=== PATIENT | female | born 1960 | race Caucasian/White ===

== ENCOUNTER 2020-09-27 13:29 | Outpatient (CLI) | payer BC, SELFPAY ==
[2020-09-27] MEDS: iohexol 300 mg/mL 50 mL Btl PO (13:48)
--- NOTE | 2020-09-27 15:00 | CT_ITS ---
WS: [id number] CT ABDOMEN PELVIS TECHNIQUE: Contrast-enhanced CT of the abdomen and pelvis with coronal and sagittal reformatted image s. CLINICAL INFORMATION: R63.4 - Abnormal weight loss COMPARISON: None. DLP: 1075.[address] scans at [facility] use at least one of these dose optimization techniques: automat ed exposure control; mA and/or kV adjustment per patient size (includes targeted exams where dose is matched to clinical indication); or iterative reconstruction. FINDINGS: Mild diffuse infiltration of the liver. Cholecystectomy clips. Lung bases are well aerated. Normal GE junction. Adrenal glands are normal. Normal renal parenchymal enhancement. No hydronephrosis. Pancre as appears normal. Normal caliber abdominal aorta. Mild aortic calcification. Sigmoid diverticulosis. No evidence of acute diverticulitis. No evidence of small or large bowel obst ruction. No periaortic or retroperitoneal lymphadenopathy. No inguinal lymphadenopathy. Normal lumbar spine. No free fluid in the abdomen or pelvis. Tiny fat-containing umbilical hernia. CT/CT abdomen pelvis w con* [id number] IMPRESSION: 1. No acute findings in the abdomen or pelvis. 2. Mild diffuse fatty infiltration liver. 3. No adenopathy in the abdomen or pelvis. 4. No hydronephrosis in either kidney. Normal renal parenchymal enhancement. 5. Sigmoid diverticulosis. No evidence of acute diverticulitis. 6. Tiny fat-containing umbilical hernia.
[2020-09-27] MEDS: iohexol 300 mg/mL 100 mL Btl IV (15:29)
== END 2020-09-27 13:30 | disposition home or self-care (01) ==
LOC: RADWPI 13:34
PROVIDERS: PCP Nurse Practitioner Family; Visit Provider Internal Medicine
DX: R63.4 Abnormal weight loss (principal); K42.9 Umbilical hernia without obstruction or gangrene; K57.30 Diverticulosis of large intestine without perforation or abscess without bleeding; K76.0 Fatty (change of) liver, not elsewhere classified
CPT/HCPCS: 36415; 74177; 80053; 82105; 85025; 87522; Q9967

== ENCOUNTER → 2020-10-07 08:55 | Outpatient (BNVA) | payer BC, SELFPAY | PROVIDERS: PCP Nurse Practitioner Family; Visit Provider Nurse Practitioner Family | DX: B18.2 Chronic viral hepatitis C (principal) | CPT/HCPCS: 87902 ==

== ENCOUNTER → 2020-12-05 13:46 | Outpatient (BNVA) | payer BC, SELFPAY | PROVIDERS: PCP Nurse Practitioner Family; Visit Provider Internal Medicine | DX: H65.90 Unspecified nonsuppurative otitis media, unspecified ear (principal); B18.2 Chronic viral hepatitis C | CPT/HCPCS: 36415; 80053; 87522 ==

== ENCOUNTER → 2021-05-12 10:40 | Outpatient (BNVA) | payer BC, SELFPAY | PROVIDERS: PCP Nurse Practitioner Family; Visit Provider Nurse Practitioner Family | DX: Z20.822 Contact with and (suspected) exposure to COVID-19 (principal); J06.9 Acute upper respiratory infection, unspecified | CPT/HCPCS: 87426 ==

== ENCOUNTER → 2022-05-30 11:27 | Outpatient (BNVA) | payer OTHER, SELFPAY | PROVIDERS: PCP Nurse Practitioner Family; Visit Provider Internal Medicine | DX: R53.83 Other fatigue (principal); B19.20 Unspecified viral hepatitis C without hepatic coma; B18.2 Chronic viral hepatitis C; K22.70 Barrett's esophagus without dysplasia; R19.8 Other specified symptoms and signs involving the digestive system and abdomen | CPT/HCPCS: 80053; 83550; 84443; 85025; 87522 ==

== ENCOUNTER 2023-01-07 12:07 | Inpatient (IN) | payer BC, SELFPAY ==
[2023-01-07] VITALS (9 sets, daily range): BP systolic 85–133; BP diastolic 56–73; PULSE 80–112; RESP 15–17; TEMP 37.8–39.4; O2SAT 92–98; BMI 30.7
--- NOTE | 2023-01-07 12:09 | ED_ITS ---
HPI - General Adult General: Chief complaint: Nausea/Vomiting/Diarrhea Stated complaint: FLU LIKE SYMP Time Seen by Provider: 01/07/23 12:09 History of Present Illness: Ms. Segura is a 62-year-old lady with history of hepatitis C presenting to the emergency department for generalized illness. She reports feeling at his baseline health yesterday and this morning at around 5 AM developed symptoms. She has had nonbilious and nonbloody emesis associated with nausea. She endorses neck pain, back pain, achiness, shortness of breath, generalized malaise. Intensity symptoms is moderate to severe. Course has persisted. She has tried home acetaminophen and analgesic without significant improvement. No other specific changes in health, exacerbating, or alleviating factors identified. Onset (ago): hour(s) Location: neck, chest, back, abdomen, upper extremity and lower extremity Severity: moderate Quality: other Pain Consistency: constant Relieving factors: none Exacerbating factors: none Associated symptoms: Reports dyspnea, fevers/chills, malaise, nausea, vomiting and weakness Review of Systems General: Reports: 10 or more systems reviewed and unremarkable except in HPI a nd below Const: Reports: malaise Resp: Reports: dyspnea GI: Reports: nausea and vomiting PFSH ED PFSH: Medical History (Updated 01/12/23 @ 00:01 by NILESH Daley) Hepatitis C Treated with Peg/riba in 1999. Failed. Major depression Surgical History (Updated 01/07/23 @ 17:03 by Itz Waite MD) H/O left knee surgery H/O tubal ligation History of cholecystectomy S/P adenoidectomy Family History Father Stroke Father CAD (coronary artery disease) Mother AD (Alzheimer's disease) Social History (Updated 01/07/23 @ 17:04 by Itz Waite MD) Smoking and tobacco status: never smoked Alcohol intake: former Physical Exam Const: COMMON NORMALS: alert GENERAL APPEARANCE: cooperative, well developed and ill appearing HENMT: COMMON NORMALS: normocephalic and atraumatic HEAD & SCALP: normocephalic and atraumatic THROAT: posterior oropharynx normal Eye: COMMON NORMALS: conjunctivae normal CONJUNCTIVA: Yes conjunctivae normal SCLERA: sclerae normal Neck/C-Spine: COMMON NORMALS: supple GENERAL: Yes trachea midline Resp: COMMON NORMALS: clear to auscultation bilaterally EFFORT & INSPECTION: Yes able to speak in complete sentences and Yes tachypneic AUSCULTATION: clear to auscultation bilaterally Cardio: COMMON NORMALS: regular rhythm RATE: tachycardic RHYTHM: regular rhythm GI: COMMON NORMALS: Soft to palpation PALPATION: Yes Soft to palpation and No Tenderness to palpation present (GI) Extremity: GENERAL: Yes normal exam except as noted and No edema Neuro: COMMON NORMALS: moves all extremities SENSORIUM/ORIENTATION: Yes a lert and No Orientation impaired Psych: COMMON NORMALS: mental status grossly normal and Normal thought process present THOUGHT PROCESS: Normal thought process present Course 2 Vital Signs: Vital signs: Vital Signs Temperature 98.6 F 01/11/23 11:33 Pulse Rate 77 01/11/23 11:33 Respiratory Rate 16 01/11/23 11:33 Blood Pressure 128/89 01/11/23 11:33 Pulse Oximetry 94 01/11/23 11:33 Oxygen Delivery Me thod 01/11/23 07:35 Oxygen Flow Rate 2 01/11/23 07:35 [facility] - General Adult Medical Decision Making 62-year-old lady presenting with abdominal symptoms. Patient is febrile and mildly tachycardic upon arrival. Somewhat ill-appearing though nontoxic. Labs are notable for leukocytosis, there is normal hemoglobin and platelet count. Metabolic panel with evidence of dehydration and hypokalemia. Initial lactic acid is elevated as well as procalcitonin. Hematuria present without evidence of urinary tract infection. Viral panel is pending. CT abdomen and pelvis demonstrates likely diverticulitis. Incidental findings noted. Chest x-ray with no lobar consolidation or pneumothorax. During the ED course patient treated with analgesia, antiemetic, IV fluids, potassium replenishment, antibiotics. Most likely etiology of patient's symptoms is diverticulitis with associated sepsis. The results of ED evaluation were discussed with the patient including plan for admission due to requirement for level of care not available if discharged to prevent significant worsening/deterioration. Patient agreeable with plan. Discussed with hospitalist service who was agreeable to admit patient. Medical Records I reviewed the patient's medical records. Lab Data I reviewed the patient's lab results. 01/11/23 05:22 01/11/23 05:22 Radiology Impressions Chest X-Ray 01/07/23 12:17 IMPRESSION: Negative portable chest. Abdomen/Pelvis CT 01/07/23 14:54 IMPRESSION: 1. Mild thickening of the sigmoid colon with slight surrounding induration suspicious for mild or early acute diverticulitis. 2. Diffuse fatty infiltration liver. Mild hepatomegaly. 3. Prior cholecystectomy. 4. Small esophageal hiatal hernia. 5. No other significant interval changes compared to previous. Chest CT 01/07/23 16:47 IMPRESSION: 1. Left upper lobe pneumonia, follow-up exam in 1 month advised to assess for resolution. 2. Small hiatal hernia. Head CT 01/07/23 16:47 IMPRESSION: No acute intracranial abnormality. Laboratory Results WBC 12.7 10^3/uL (4.0-10.0) H 01/07/23 13:05 RBC 4.72 10^6/uL (4.1-5.3) 01/07/23 13:05 Hgb 14.5 g/dL (11.5-15.3) 01/07/23 13:05 Hct 43.1 % (37.0-47.0) 01/07/23 13:05 MCV 91.3 fl (81-99) 01/07/23 13:05 MCH 30.7 pg (28.0-34.0) 01/07/23 13:05 MCHC 33.6 g/dL (30.0-36.0) 01/07/23 13:05 RDW 13.4 % (12.1-15.1) 01/07/23 13:05 Plt Count 191 10^3/cmm (130-400) 01/07/23 13:05 MPV 9.8 fL (7.4-10.4) 01/07/23 13:05 Neut % (Auto) 91.2 % 01/07/23 13:05 Lymph % (Auto) 3.5 % 01/07/23 13:05 [place] % (Auto) 4.5 % 01/07/23 13:05 Eos % (Auto) 0.0 % 01/07/23 13:05 Baso % (Auto) 0.2 % 01/07/23 13:05 Neut # (Auto) 11.61 10^3/uL (1.8-7.7) H 01/07/23 13:05 Lymph # (Auto) 0.5 10^3/uL (0.8-4.8) L 01/07/23 13:05 [place] # (Auto) 0.6 10^3/uL (0.2-0.9) 01/07/23 13:05 Eos # (Auto) 0.0 10^3/uL (0.0-0.8) 01/07/23 13:05 Baso # (Auto) 0.0 10^3/uL (0.0-0.1) 01/07/23 13:05 Nucleated RBC % (auto) 0 % 01/07/23 13:05 Nucleated RBCs # 0.0 /100WBC 01/07/23 13:05 ESR 10 mm/hr (0-15) 01/07/23 13:05 Sodium 136 mmol/L (136-145) 01/07/23 13:05 Potassium 3.1 mmol/L (3.5-5.1) L 01/07/23 13:05 Chloride 98 mmol/L (98-107) 01/07/23 13:05 Carbon Dioxide 24 mmol/L (22-29) 01/07/23 13:05 Anion Gap 17.1 (5-19) 01/07/23 13:05 BUN 13 mg/dL (8-23) 01/07/23 13:05 Creatinine 0.8 mg/dL (0.5-0.9) 01/07/23 13:05 GFR Calculation 72.7 mL/min (90-130) L 01/07/23 13:05 Glucose 128 mg/dL (65-115) H 01/07/23 13:05 Calculated Osmolality 284 mOsm/kg (285-295) L 01/07/23 13:05 Lactic Acid 2.6 mmol/L (0.5-2.2) H 01/07/23 14:45 Calcium 9.4 mg/dL (8.5-10.5) 01/07/23 13:05 Total Bilirubin 0.8 mg/dL (0.15-1.2) 01/07/23 13:05 AST 25 U/L (0-32) 01/07/23 13:05 ALT 17 U/L (0-33) 01/07/23 13:05 Alkaline Phosphatase 97 U/L (35-105) 01/07/23 13:05 C-Reactive Protein 25.8 mg/L (0.0-4.9) H 01/07/23 13:05 Total Protein 7.4 g/dL (6.6-8.7) 01/07/23 13:05 Albumin 4.6 g/dL (3.5-5.2) 01/07/23 13:05 Globulin 2.8 g/dL (1.3-4.6) 01/07/23 13:05 Procalcitonin 20.21 ng/mL (0-0.5) H 01/07/23 14:45 TSH 0.76 uIU/mL (0.27-4.20) 01/07/23 14:42 Urine Color Yellow (Yellow) 01/07/23 14:19 Urine Appearance Clear (CLEAR) 01/07/23 14:19 Urine pH 5 (5-7) 01/07/23 14:19 Ur Specific [place] 1.015 (1.005-1.030) 01/07/23 14:19 Urine Protein Neg (Negative) 01/07/23 14:19 Urine Glucose (UA) Norm (Normal) 01/07/23 14:19 Urine Ketones Negative (Negative) 01/07/23 14:19 Urine Blood 2+ (Negative) H 01/07/23 14:19 Urine Nitrate Negative (Negative) 01/07/23 14:19 Urine Bilirubin Neg (Negative) 01/07/23 14:19 Urine Urobilinogen Norm mg/dL (Negative) 01/07/23 14:19 Ur Leukocyte Esterase Negative (Negative) 01/07/23 14:19 Urine RBC 5-10 /hpf (0-2) H 01/07/23 14:19 Urine WBC None /hpf (0-5) 01/07/23 14:19 Ur Squamous Epith Cells 0-4 /hpf (0-5) H 01/07/23 14:19 Amorphous Sediment Not Reportable 01/07/23 14:19 Urine Bacteria None /hpf (NONE) 01/07/23 14:19 Urine Mucus 1+ /hpf 01/07/23 14:19 Urine Opiates Screen Positive ng/mL (Negative) H 01/07/23 14:19 Ur Barbiturates Screen Negative ng/mL (Negative) 01/07/23 14:19 Ur Phencyclidine Scrn Negative ng/mL (Negative) 01/07/23 14:19 Ur Amphetamines Screen Negative ng/mL (Negative) 01/07/23 14:19 U Benzodiazepines Scrn Negative ng/mL (Negative) 01/07/23 14:19 Urine Cocaine Screen Negative ng/mL (Negative) 01/07/23 14:19 U Marijuana (THC) Screen Positive ng/mL (Negative) H 01/07/23 14:19 EBV IgG Ab 646.00 U/mL H 01/07/23 13:05 EBV IgM Ab <36.00 U/mL 01/07/23 13:05 EBV Nuclear Antigen 63.50 U/mL H 01/07/23 13:05 EBV Interpretation See note 01/07/23 13:05 Hepatitis A IgM Ab Non-reactive (Nonreactive) 01/07/23 13:05 Hep Bs Antigen Non-reactive (Nonreactive) 01/07/23 13:05 Hep B Core IgM Ab Non-reactive (Nonreactive) 01/07/23 13:05 Hepatitis C Antibody Reactive (Nonreactive) H 01/07/23 13:05 HIV 1&2 Ab & HIV 1 Ag Non-reactive (Non-Reactiv) 01/07/23 13:05 HIV 1&2 Antibody Non-reactive (Non-Reactiv) 01/07/23 13:05 Influenza Type A Ag negative (Negative) 01/07/23 13:07 Influenza Type B Ag negative (Negative) 01/07/23 13:07 SARS-CoV-2 Ag (Rapid) negative (Negative) 01/07/23 13:07 Discharge Plan Discharge Patient Disposition: Admitted As Inpatient Admit Provider: Itz Waite Clinical Impression: Diverticulitis, Sepsis Condition: Stable Discharge Diet: Cardiac Discharge Activity: Resume usual activity Coding Level of Care Code ED [employer] for Isai Causey
--- NOTE | 2023-01-07 12:17 | XRR_ITS ---
PROCEDURE INFORMATION: Exam: XR Chest Exam date and time: 01/07/2023 12:21 PM Age: 62 years old Clinical indication: Shortness of breath; Additional info: SOB TECHNIQUE: Imaging protocol: Radiologic exam of the chest. Views: 1 view. COMPARISON: CT abdomen pelvis w con* [id number] 09/27/2020 3:26 PM FINDINGS: Lungs: Unremarkable for portable technique. No consolidation. Pleural spaces: Unremarkable. No pleural effusion. No pneumothorax. Heart/Mediastinum: Unremarkable. No cardiomegaly. Bones/joints: Unremarkable for age. XR/XR chest 1V portable [id number] IMPRESSION: Negative portable chest.
[2023-01-07] MEDS: metoclopramide 5 mg/mL SDV 2 mL 10 MG IVP (13:02)
[2023-01-07] MEDS: ketorolac 30 mg/mL INJ 15 MG IVP (13:02)
[2023-01-07] MEDS: sodium chloride 0.9% 1,000 ML 999 ML IV ×2 (13:02→14:24)
[2023-01-07 13:27] LABS: Basophils % 0.2 %; Hematocrit 43.1 % (37.0-47.0); Hemoglobin 14.5 g/dL (11.5-15.3); Lymphocytes # 0.5 10^3/uL (0.8-4.8); Lymphocytes % 3.5 %; Mean Corpuscular HGB Conc 33.6 g/dL (30.0-36.0); Mean Corpuscular Hemoglobin 30.7 pg (28.0-34.0); Mean Corpuscular Volume 91.3 fl (81-99); Mean Platelet Volume 9.8 fL (7.4-10.4); Monocytes # 0.6 10^3/uL (0.2-0.9); Monocytes % 4.5 %; Neutrophils # 11.61 10^3/uL (1.8-7.7); Neutrophils % 91.2 %; Nucleated Red Blood Cells % 0 %; Platelet Count 191 10^3/cmm (130-400); Red Blood Count 4.72 10^6/uL (4.1-5.3); Red Cell Distribution Width 13.4 % (12.1-15.1); White Blood Count 12.7 10^3/uL (4.0-10.0)
[2023-01-07 13:42] LABS: Influenza A by IFA negative (Negative); Influenza B by IFA negative (Negative)
[2023-01-07 13:43] LABS: SARS Covid-2 Antigen negative (Negative)
[2023-01-07 13:48] LABS: Alanine Aminotransferase 17 U/L (0-33); Albumin Level 4.6 g/dL (3.5-5.2); Alkaline Phosphatase 97 U/L (35-105); Anion Gap 17.1 (5-19); Aspartate Amino Transferase 25 U/L (0-32); Blood Urea Nitrogen 13 mg/dL (8-23); Calcium 9.4 mg/dL (8.5-10.5); Carbon Dioxide 24 mmol/L (22-29); Chloride 98 mmol/L (98-107); Globulin 2.8 g/dL (1.3-4.6); Glomerular Filtration Rate 72.7 mL/min (90-130); Glucose 128 mg/dL (65-115); Osmolality Calculated 284 mOsm/kg (285-295); Potassium 3.1 mmol/L (3.5-5.1); Sodium 136 mmol/L (136-145); Total Bilirubin 0.8 mg/dL (0.15-1.2); Total Protein 7.4 g/dL (6.6-8.7)
[2023-01-07] MEDS: potassium chloride ER 20 mEq Tablet 40 MEQ PO (14:34)
[2023-01-07 14:49] LABS: Add Urine Microscopic? YES; Bilirubin Urine Neg (Negative); Blood Urine 2+ (Negative); Glucose Urine UA Norm (Normal); Ketones Urine Negative (Negative); Leukocyte Esterase Urine Negative (Negative); Nitrate Urine Negative (Negative); Protein Urine Neg (Negative); Specific Gravity, Urine 1.015 (1.005-1.030); Urine Appearance Clear (CLEAR); Urine Color Yellow (Yellow); Urobilinogen Urine Norm (Negative); pH Urine 5 (5-7)
[2023-01-07 14:50] LABS: Add Urine Culture? No; Mucus Urine 1+ /hpf; Squamous Epithelial Cell Urine 0-4 /hpf (0-5)
--- NOTE | 2023-01-07 14:54 | CT_ITS ---
WS: [id number] CT ABDOMEN PELVIS TECHNIQUE: Contrast-enhanced CT of the abdomen and pelvis with coronal and sagittal reformatted image s. CLINICAL INFORMATION: n/v/d, SIRS COMPARISON: CT September 27, 2020 DLP: 832.[address] scans at [facility] use at least one of these dose optimization techniques: automated e xposure control; mA and/or kV adjustment per patient size (includes targeted exams where dose is matc hed to clinical indication); or iterative reconstruction. FINDINGS: Diffuse fatty infiltration liver. Hepatomegaly. Prior cholecystectomy. Normal portal vein and splenic vein. Normal spleen. Tiny esophageal hiatal hernia. Lung bases are well aerated. Prior cholecystecto my. Adrenal glands are normal. Normal renal parenchymal enhancement. No hydronephrosis. Normal calibe r abdominal aorta. Sigmoid diverticulosis. Mild wall thickening with slight induration in the sigmoid colon LEFT lower q uadrant suspicious for mild or early diverticulitis. No fluid collections. Colon is otherwise normal in appearance. Normal appendix RIGHT lower quadrant. No free fluid in the a bdomen or pelvis. Normal lumbar spine. CT/CT abdomen pelvis w con* [id number] IMPRESSION: 1. Mild thickening of the sigmoid colon with slight surrounding induration fadi picious for mild or early acute diverticulitis. 2. Diffuse fatty infiltration liver. Mild hepatomegaly. 3. Prior cholecystectomy. 4. Small esophageal hiatal hernia. 5. No other significant interval changes compared to previous.
[2023-01-07] MEDS: iohexol 350 mg/mL 500 mL Btl (per mL) IV (15:07)
[2023-01-07 15:43] LABS: Lactic Sepsis W/Reflex 2.6 mmol/L (0.5-2.2)
[2023-01-07 15:50] LABS: Procalcitonin 20.21 ng/mL (0-0.5)
[2023-01-07] MEDS: metroNIDAZOLE IV 500 MG/100 ML PREMIX 100 MG IV (16:16)
[2023-01-07] MEDS: ciprofloxacin 400 MG/200 ML PREMIX 200 MG IV (16:16)
--- NOTE | 2023-01-07 16:47 | CTR_ITS ---
PROCEDURE INFORMATION: Exam: CT Head Without Contrast Exam date and time: 01/07/2023 4:56 PM Age: 62 years old Clinical indication: Pain; Headache TECHNIQUE: Imaging protocol: Computed tomography of the head without contrast. Radiation optimization: All CT scans at this facility use at least one of these dose optimization techniques: automated exposure control; mA and/or kV adjustment per patient size (includes targeted exams where dose is matched to clinical indication); or iterative reconstruction. REPORTING DATA: Count of CT and Cardiac NM exams in prior 12 months: This patient has received [address] and 0 known cardiac nuclear medicine studies in the 12 months prior to the current study. COMPARISON: No relevant prior studies available. RADIATION DOSE METRICS: Total DLP (mGy-cm): 1054.84 FINDINGS: Brain: Normal. No hemorrhage. No mass effect or midline shift. Cortical sulci and white matter are unremarkable for age. Cerebral ventricles: Unremarkable for age. Paranasal sinuses: Visualized sinuses are unremarkable. No fluid levels. Mastoid air cells: Visualized mastoid air cells are well aerated. Bones/joints: Unremarkable. No acute fracture. Soft tissues: Unremarkable. Other findings: There is increased attenuation within the cerebral vasculature that is believed incidental related to recent contrast enhanced study of the abdomen and pelvis performed earlier the same day. There is also increased attenuation noted within the dural sinuses and tentorium that is believe similar in nature. CT/CT head wo con* [id number] IMPRESSION: No acute intracranial abnormality.
--- NOTE | 2023-01-07 16:47 | CTR_ITS ---
PROCEDURE INFORMATION: Exam: CT Chest Without Contrast; Diagnostic Exam date and time: 01/07/2023 4:59 PM Age: 62 years old Clinical indication: Shortness of breath; Additional info: SOB TECHNIQUE: Imaging protocol: Diagnostic computed tomography of the chest without contrast. Radiation optimization: All CT scans at this facility use at least one of these dose optimization techniques: automated exposure control; mA and/or kV adjustment per patient size (includes targeted exams where dose is matched to clinical indication); or iterative reconstruction. REPORTING DATA: Count of CT and Cardiac NM exams in prior 12 months: This patient has received 2 known CTs and 0 known cardiac nuclear medicine studies in the 12 months prior to the current study. COMPARISON: CR XR chest 1V portable [id number] 01/07/2023 12:21 PM RADIATION DOSE METRICS: Total DLP (mGy-cm): 401.65 FINDINGS: Lungs: Left upper lobe pneumonia, follow-up exam in 1 month advised to assess for resolution. Pleural spaces: Unremarkable. No pneumothorax. No pleural effusion. Heart: Unremarkable. No cardiomegaly. No pericardial effusion. Coronary arteries: Negative for coronary artery atherosclerotic calcifications. Lymph nodes: Unremarkable. No enlarged lymph nodes. Vasculature: Unremarkable. No aortic aneurysm. Bones/joints: Unremarkable. No acute fracture. Soft tissues: Small hiatal hernia. CT/CT chest [facility] [id number] IMPRESSION: 1. Left upper lobe pneumonia, follow-up exam in 1 month advised to assess for resolution. 2. Small hiatal hernia.
--- NOTE | 2023-01-07 16:55 | PM.HP ---
Providers/Chief Complaint Primary Care Provider: THI Chavez Chief Complaint: FLU LIKE SYMP History of Present Illness Mary Grace Segura is a 62 year old female with a past medical history of hepatitis C status posttreatment, who presents to [facility] due to fatigue, malaise, shortness of breath, cough, lung pain, fevers for the last 24 hours. Patient tells me that this morning she woke up and she was not feeling well, felt fatigue, malaise she tells me almost felt like she had the flu, she felt short of breath, she had a nonproductive cough she was having pain in she tells me her lungs are hurting her when she is taking a deep breath, denies any chest pain, no chest wall pain it just hurts when I breathe she tells me, and also hurts when it radiates to my back. She tells me that her was sick about a week ago, he also had like flulike symptoms. She was also saw sick a few weeks ago had flulike symptoms but her symptoms resolved. Her son has also been sick he thought he was exposed to COVID at work, but he tested himself and this was about a week ago he tested negative. She was doing well yesterday she tells me she actually went on a road trip yesterday, no tick bites, no dog or cat bites, no known exposures. She does tell me that roughly a few weeks ago she fell she hit her head, and she went to the ER at [facility] and they told her that she was okay she tells me that periodically she does get headaches, currently she is not particularly having a headache, no neck pain, no neck stiffness, no range of motion, no blurry vision. She denies any abdominal pain, no diarrhea she had a bowel movement this morning. No bloody or black stools. No dysuria, no CVA tenderness. She does tell me that she has outbreaks of herpes, she what she calls herpes, that occur along her buttocks, currently she does not have a outbreak of herpes denies being sexually active, denies history of HIV or STDs. Does report a history of hepatitis C for which she was treated Review of Systems Const: Reports: fever(s), chills, body aches, fatigue and malaise Eyes: Denies: change in vision or blurry vision ENMT: Denies: throat pain or hoarseness Card: Reports: dyspnea on exertion; Denies: chest pain or pre-syncope Resp: Reports: dyspnea and non-productive cough GI: Denies: abdominal pain, nausea, vomiting or diarrhea : Denies: flank pain, difficulty voiding or dysuria Musc: Denies: neck pain or back pain Skin/Breast: Denies: rash Neuro: Reports: headache(s) and numbness in extremities; Denies: weakness in extremities, sensory changes, difficulty walking, frequent falls, dizziness or Slurred speech present Psych: Denies: anxiety Endo: Denies: polyuria Kevin/Lymph: Reports: enlarged lymph nodes All/Imm: Denies: urticaria Medications/Allergies Home Medications Medication Instructions Recorded Confirmed Last Taken Type linaclotide 72 mcg capsule 72 mcg PO DAILY #90 caps 06/25/22 07/05/22 Unknown Rx (Linzess) nirmatrelvir 300 mg (150 mg See Rx Instructions PO .COMPLEX 07/25/22 Unknown Rx x2)-ritonavir 100 mg tablet,dose #30 tabs pack(EUA) (Paxlovid) Allergies Allergy/AdvReac Type Severity Reaction Status Date / Time cefaclor Allergy Intermediate hives Verified 07/05/22 14:15 Sulfa (Sulfonamide Allergy Intermediate hives Verified 07/05/22 14:15 Antibiotics) PFSH Acute PFSH: Medical History (Updated 01/07/23 @ 17:09 by Itz Waite MD) Hepatitis C Treated with Peg/riba in 1999. Failed. Major depression Surgical History (Updated 01/07/23 @ 17:03 by Itz Waite MD) H/O left knee surgery H/O tubal ligation History of cholecystectomy S/P adenoidectomy Family History Father Stroke Father CAD (coronary artery disease) Mother AD (Alzheimer's disease) Social History (Updated 01/07/23 @ 17:04 by Itz Waite MD) Smoking and tobacco status: never smoked Alcohol intake: former Substance/Drug Use: current Substance/Drug use type: Marijuana Vitals/I&O/Wt Last Vital Signs Temp 100.1 F H 01/07/23 14:11 Pulse 99 03/06/23 16:28 Resp 16 01/07/23 16:28 BP 98/63 01/07/23 16:28 Pulse Ox 95 01/07/23 16:28 O2 Del Method 01/07/23 16:28 Weight last 48 hrs Weight 86.183 kg Physical Exam Const: COMMON NORMALS: no acute distress and patient oriented x3 HENMT: COMMON NORMALS: normocephalic HEAD & SCALP: normocephalic Eye: COMMON NORMALS: Equal, round and reactive pupils present and EOMs intact bilaterally Neck/C-Spine: COMMON NORMALS: no JVD GENERAL: Yes lymphadenopathy and No Meningeal signs present OTHER: Kernig sign negative, Brudzinski sign negative Lymph: LYMPHATIC: lymphadenopathy OTHER: cervical Resp: COMMON NORMALS: normal respiratory effort, No retractions, No use of accessory muscles and clear to auscultation bilaterally AUSCULTATION: wheezes scattered wheezes Cardio: COMMON NORMALS: no JVD, regular rate, regular rhythm, S1 normal heart sound present and S2 normal heart sound present RATE: regular rate RHYTHM: regular rhythm HEART SOUNDS: S1 normal heart sound present and S2 normal heart sound present GI: COMMON NORMALS: Normal to inspection, nondistended, normoactive bowel sounds present, Soft to palpation, non-tender, No hepatosplenomegaly present, no masses and no bruits PALPATION: Yes Soft to palpation and Yes No hepatosplenomegaly present : COMMON NORMALS: Yes no CVA tenderness Extremity: COMMON NORMALS: capillary refill normal, no clubbing, cyanosis or edema, no calf tenderness and no pedal edema Neuro: COMMON NORMALS: patient oriented x3, CN's II-XII intact bilaterally, moves all extremities and no focal motor deficits Psych: COMMON NORMALS: mental status grossly normal Skin: COMMON NORMALS: no rashes or lesions noted Data 01/07/23 13:05 01/07/23 13:05 Micro: Microbiology 01/07/23 13:12 Blood Culture - Preliminary Blood SPECIMEN COLLECTED 01/07/23 13:05 Blood Culture - Preliminary Blood SPECIMEN COLLECTED A&P Assessment and plan (1) Sepsis: (2) Fever: (3) Diverticulitis: Plan Fever -Etiology unclear at this time -She denies any abdominal pain complaints, no diarrhea, no constipation, no bloody or black stools, on examination is really not tender in the abdomen, she does not report chronic abdominal discomfort, but really its not bothering her now -CT abdomen pelvis shows ? Mild thickening of the sigmoid colon with slight surrounding induration suspicious for mild or early acute diverticulitis. -I am not exactly convinced that diverticulitis is a reason she is having fevers, not feeling well, nonetheless she received Cipro and Flagyl in the ER -Urinalysis was unremarkable, no CVA tenderness -She does have symptomatology consistent with pneumonia although her chest x-ray was unremarkable -We will Pro-Jose is over 20 -White blood cell count 12.7 -Febrile emergency room -Her flu and COVID were negative but this was a rapid COVID -Given her cervical lymphadenopathy she does have features of a viral illness, -She has had complaints of headache since her fall about a week ago, but in is not particularly bad in her words today, no blurry vision, Kernig sign negative Brudzinski sign negative but she has been complaining of paresthesias this morning in her fingers, no focal weakness -She has sepsis markers in the ER including elevated lactic acid 2.6, blood pressures are soft 98/63, -She is alert oriented x3, following all commands -Plan -Admit to general medical floors -Neurochecks, monitor respiratory status -CT of chest ordered -CT of the head -Viral respiratory panel, COVID PCR -Follow blood cultures -Urine drug screen -Tick panel -Broad-spectrum antibiotic therapy vancomycin, Zosyn and doxycycline for possible tickborne illness -Full code -Lovenox for DVT prophylaxis Attestations Medical Necessity Statement*: Patient requires hospitalization, inpatient, greater than 2 minutes, for fever, cough, shortness of breath Diagnoses Sepsis A41.9 Fever R50.9 Diverticulitis K57.92
[2023-01-07 17:06] LABS: Reflex Lactate Order REFLEX LACTIC ORDERD
[2023-01-07 17:15] LABS: C Reactive Protein 25.8 mg/L (0.0-4.9)
[2023-01-07 17:45] LABS: Erythrocyte Sedimentation Rate 10 mm/hr (0-15)
[2023-01-07] MEDS: enoxaparin 40 mg/0.4 mL Syringe SUBCUT (19:30)
[2023-01-07] MEDS: pantoprazole 40 mg SDV IVP (19:30)
[2023-01-07] MEDS: sodium chloride 0.9% 1,000 ML 125 ML IV (19:31)
[2023-01-07] MEDS: doxycycline 100 MG in sodium chloride 0.9% (plus) 100 ML IV (19:31)
--- NOTE | 2023-01-07 19:35 | PC.NURSE ---
Patient states it is okay to talk with sisters Melinda Garcia, Joanne Ana. Also states it is okay to talk with son Jag Pelayo.
[2023-01-07 19:40] LABS: Thyroid Stimulating Hormone 0.76 uIU/mL (0.27-4.20)
[2023-01-07 19:45] LABS: Hepatitis A Antibody IgM Non-Reactive (Nonreactive); Hepatitis B Core IgM Non-Reactive (Nonreactive); Hepatitis B Surface Antigen Non-Reactive (Nonreactive); Hepatitis C Virus Antibody Reactive (Nonreactive)
[2023-01-07 19:51] LABS: HIV 1 & 2 Antibody Non-Reactive (Non-Reactiv); HIV 1 & 2 Antigen Non-Reactive (Non-Reactiv)
[2023-01-07 20:09] LABS: Lactic Acid level (Lactate) 4.2 mmol/L (0.5-2.2)
[2023-01-07] MEDS: acetaminophen 325 mg Tablet 650 MG PO (20:26)
[2023-01-07] MEDS: ondansetron 2 mg/ML SDV 2 mL 4 MG IVP (20:26)
[2023-01-07 20:55] LABS: Amphetamines Screen Urine Negative (Negative); Barbiturates Screen Urine Negative (Negative); Benzodiazepines Screen Urine Negative (Negative); Cocaine Screen Urine Negative (Negative); Opiate Screen Urine Positive (Negative); PCP Screen Urine Negative (Negative); THC Screen Urine Positive (Negative)
[2023-01-07] MEDS: vancomycin 1,500 MG/300 ML PIGGYBACK 200 MG IV (20:57)
[2023-01-07] MEDS: piperacillin-tazobactam 3.375 GM in sodium chloride 0.9% (plus) 50 ML IV (22:53)
[2023-01-08] VITALS (10 sets, daily range): BP systolic 85–98; BP diastolic 58–65; PULSE 80–87; RESP 15–18; TEMP 36.6–37.3; O2SAT 95–98
[2023-01-08 00:08] LABS: Adenovirus Not Detected (NOT DETECT); Chlamydia Pneumoniae Not Detected (NOT DETECT); Coronavirus 229E,HKU1,NL63,OC4 Not Detected (NOT DETECT); Human Metapneumovirus Not Detected (NOT DETECT); Human Rhinovirus/Enterovirus Not Detected (NOT DETECT); Influenza A Not Detected (NOT DETECT); Influenza A H1 Not Detected (NOT DETECT); Influenza A H1-2009 Not Detected (NOT DETECT); Influenza A H3 Not Detected (NOT DETECT); Influenza B Not Detected (NOT DETECT); Mycoplasma Pneumoniae Not Detected (NOT DETECT); Parainfluenza Virus Type 1 Not Detected (NOT DETECT); Parainfluenza Virus Type 2 Not Detected (NOT DETECT); Parainfluenza Virus Type 3 Not Detected (NOT DETECT); Parainfluenza Virus Type 4 Not Detected (NOT DETECT); Respiratory Syncytial Virus A Not Detected (NOT DETECT); Respiratory Syncytial Virus B Not Detected (NOT DETECT); SARS-COV-2 Not Detected (NOT DETECT)
[2023-01-08] MEDS: acetaminophen 325 mg Tablet 650 MG PO ×4 (02:46→21:43)
[2023-01-08] MEDS: sodium chloride 0.9% 1,000 ML 125 ML IV (02:48)
[2023-01-08 06:17] LABS: Hematocrit 35.1 % (37.0-47.0); Hemoglobin 11.3 g/dL (11.5-15.3); Mean Corpuscular HGB Conc 32.2 g/dL (30.0-36.0); Mean Corpuscular Hemoglobin 30.3 pg (28.0-34.0); Mean Corpuscular Volume 94.1 fl (81-99); Mean Platelet Volume 9.9 fL (7.4-10.4); Platelet Count 154 10^3/cmm (130-400); Red Blood Count 3.73 10^6/uL (4.1-5.3); Red Cell Distribution Width 14.1 % (12.1-15.1); White Blood Count 20.9 10^3/uL (4.0-10.0)
[2023-01-08 06:46] LABS: Blood Urea Nitrogen 16 mg/dL (8-23); C Reactive Protein 225.3 mg/L (0.0-4.9); Calcium 7.8 mg/dL (8.5-10.5); Carbon Dioxide 19 mmol/L (22-29); Chloride 104 mmol/L (98-107); Glomerular Filtration Rate 63.4 mL/min (90-130); Glucose 129 mg/dL (65-115); Osmolality Calculated 287 mOsm/kg (285-295); Sodium 137 mmol/L (136-145)
[2023-01-08 06:47] LABS: Anion Gap 18.1 (5-19); Potassium 4.1 mmol/L (3.5-5.1)
[2023-01-08 06:50] LABS: Procalcitonin 36.62 ng/mL (0-0.5)
[2023-01-08 06:51] LABS: Slide Review Slide Review Perform
[2023-01-08 06:53] LABS: Absolute Segmented Neutrophil 10.9 10/cmm (1.6-7.1); Band Neutrophils Absolute 8.2 10^3/cmm (0.0-1.2); Lymphocytes 2 %; Monocytes Absolute 0.8 10^3/cmm (0.1-0.6); Segmented Neutrophils 52 %; Total Cells Counted 100 (0-100)
[2023-01-08 06:55] LABS: Platelet Estimate Normal (Normal); Toxic Granulation 1+
[2023-01-08] MEDS: doxycycline 100 MG in sodium chloride 0.9% (plus) 100 ML IV ×2 (06:55→17:28)
[2023-01-08 06:56] LABS: Eosinophils 0 %; Lymphocytes Absolute 0.4 10^3/cmm (1.2-3.4)
[2023-01-08] MEDS: midodrine 5 mg TABLET 10 MG PO ×3 (08:22→23:45)
[2023-01-08] MEDS: piperacillin-tazobactam 3.375 GM in sodium chloride 0.9% (plus) 50 ML IV ×3 (10:10→23:45)
--- NOTE | 2023-01-08 10:21 | PC.CHAP ---
Pastoral Care Encounter/Spiritual Assessment Type of Contact [] Declined commercial fisher visit [] Patient/Family/Request visit [] Outpatient visit [] Follow-up visit [] Physician referral [] Code/Alert [x] Routine visit [] Staff referral [] Actively dying [] Patient sleeping [] Family support [] [] Out of room [] Palliative care [] [] Receiving care in room [] Pre-surgical visit [] Trauma [] Long length of stay [] ICU visit [] Other: Relational/Emotional Strength [x] Patient feels connected with others/family/visitors/staff [] Distress [] Loneliness/isolation [] Abandonment Spirituality of Patient [x] Person of Violeta [] Attends Pentecostal of their Violeta [x] Believes in Prayer [] Reads Bible or Confucianist materials [] There are Spiritual issues to be addressed Full Charge Bookkeeper Interventions [x] Prayer [] Active listening [] Non-anxious presence [x] Spiritual/emotional support [] Crisis/trauma care [] Spiritual counseling [] Bereavement support [] Provided bereavement packet [] Provided Bible/devotional materials [] Provided toy/stuffed animal, coloring book to patient or family member [] Provided Communion [] Anointing/[place] [] Salvation [x] Completed spiritual assessment [] Other: Impact on Illness or Injury [] Angry [] Fearful [] Anxious [] Often cries [] Exhaustion [] Unable to work [] Unable to attend evangelical [] Unable to walk/stand [] Unable to read [] Unable to drive [] Unable to eat/drink [] Unable to sleep [] Unable to be with family [] Patient intubated [] Other: Summary Time spent with patient 10 min
[2023-01-08] MEDS: sodium chloride 0.9% 250 ML IV (11:50)
--- NOTE | 2023-01-08 14:57 | P.PN_ITS ---
Subjective Subjective: Patient was seen this morning, she tells me she feels a lot better her blood pressure is a bit soft, but denies any lightheadedness or dizziness Vitals/I&O/Wt Last Vital Signs Temp 98.3 F 01/08/23 13:00 Pulse 81 01/08/23 14:31 Resp 18 01/08/23 08:20 BP 93/61 01/08/23 14:31 Pulse Ox 95 01/08/23 14:31 O2 Del Method 01/08/23 14:31 O2 Flow Rate 2 01/08/23 03:44 01/07/23 01/08/23 01/08/23 22:59 06:59 14:59 Intake Total 2700 / 2700 960.417 / 3660.417 1640 / 1640 Output Total 100 / 100 Balance 2699 / 2699 960.417 / 3659.417 1540 / 1540 Weight last 48 hrs Weight 90.537 kg Weight 86.183 kg Physical Exam Const: COMMON NORMALS: no acute distress and patient oriented x3 Resp: COMMON NORMALS: normal respiratory effort, No retractions, No use of accessory muscles and clear to auscultation bilaterally AUSCULTATION: clear to auscultation bilaterally Cardio: COMMON NORMALS: regular rate, regular rhythm, S1 normal heart sound present and S2 normal heart sound present RATE: regular rate RHYTHM: regular rhythm HEART SOUNDS: S1 normal heart sound present and S2 normal heart sound present GI: COMMON NORMALS: Normal to inspection, nondistended, normoactive bowel sounds present and non-tender Extremity: COMMON NORMALS: no pedal edema Neuro: COMMON NORMALS: patient oriented x3 Psych: COMMON NORMALS: mental status grossly normal Data 01/08/23 06:06 01/08/23 06:06 Micro: Microbiology 01/07/23 13:12 Blood Culture - Preliminary Blood NEGATIVE TO DATE 01/07/23 13:05 Blood Culture - Preliminary Blood NEGATIVE TO DATE 01/07/23 22:05 MRSA Culture - Final Nose 01/08/23 10:15 Bacterial Antigens - Final Urine,Voided A&P Assessment and plan (1) Sepsis: (2) Fever: (3) Diverticulitis: (4) Lactic acidosis: (5) Left upper lobe pneumonia: (6) Low blood pressure: Plan Fever, secondary left upper lobe pneumonia -Secondary to left upper lobe pneumonia seen on chest CT -She denies any abdominal pain complaints, no diarrhea, no constipation, no bloody or black stools, on examination is really not tender in the abdomen, she does not report chronic abdominal discomfort, but really its not bothering her now -CT abdomen pelvis shows ? Mild thickening of the sigmoid colon with slight surrounding induration suspicious for mild or early acute diverticulitis. -I am not exactly convinced that diverticulitis is a reason she is having fevers, not feeling well, nonetheless she received Cipro and Flagyl in the ER -Urinalysis was unremarkable, no CVA tenderness -We will Pro-Jose is over 36 -CRP to 225 -White blood cell count 21 -Her flu and COVID were negative -Given her cervical lymphadenopathy she does have features of a viral illness, -She has had complaints of headache since her fall about a week ago, but in is n ot particularly bad in her words today, no blurry vision, Kernig sign negative Brudzinski sign negative, head CT within normal limits, no neck pain this morning, no neck stiffness -Lactic acidosis, currently 2.0 -She is alert oriented x3, following all commands -Plan -Admit to general medical floors -Neurochecks, monitor respiratory status -Continue vancomycin, Zosyn, doxycycline -Continue fluid bolus therapy, midodrine 10 3 times daily - we will check serum cortisol levels -Follow blood cultures -Tick panel -Full code -Lovenox for DVT prophylaxis Attestations Medical Necessity Statement*: Patient requires hospitalization for fever secondary to left upper lobe pneumonia Diagnoses Sepsis A41.9 Fever R50.9 Diverticulitis K57.92 Lactic acidosis E87.20 Left upper lobe pneumonia J18.9 Low blood pressure I95.9
[2023-01-08] MEDS: vancomycin 1,500 MG/300 ML PIGGYBACK 200 MG IV (15:04)
[2023-01-08] MEDS: lactated ringers 1,000 ML 999 ML IV (15:49)
[2023-01-08 17:05] LABS: Lactic Sepsis W/Reflex 2.9 mmol/L (0.5-2.2)
[2023-01-08] MEDS: enoxaparin 40 mg/0.4 mL Syringe SUBCUT (17:23)
[2023-01-08] MEDS: pantoprazole 40 mg SDV IVP (17:33)
[2023-01-08 17:49] LABS: Cortisol Random 17.09 ug/dL (2.47-19.5)
[2023-01-08 18:29] LABS: Reflex Lactate Order REFLEX LACTIC ORDERD
[2023-01-08 20:27] LABS: Lactic Acid level (Lactate) 1.3 mmol/L (0.5-2.2)
[2023-01-08] MEDS: ondansetron 2 mg/ML SDV 2 mL 4 MG IVP (21:50)
[2023-01-09] VITALS (11 sets, daily range): BP systolic 92–113; BP diastolic 60–76; PULSE 74–89; RESP 14–18; TEMP 36.6–37.3; O2SAT 92–95
[2023-01-09 05:11] LABS: Basophils # 0.1 10^3/uL (0.0-0.1); Basophils % 0.3 %; Eosinophils # 0.1 10^3/uL (0.0-0.8); Eosinophils % 0.3 %; Hematocrit 31.8 % (37.0-47.0); Hemoglobin 10.6 g/dL (11.5-15.3); Lymphocytes # 1.4 10^3/uL (0.8-4.8); Lymphocytes % 7.7 %; Mean Corpuscular HGB Conc 33.3 g/dL (30.0-36.0); Mean Corpuscular Hemoglobin 31.4 pg (28.0-34.0); Mean Corpuscular Volume 94.1 fl (81-99); Mean Platelet Volume 10.1 fL (7.4-10.4); Monocytes # 0.4 10^3/uL (0.2-0.9); Monocytes % 2.4 %; Neutrophils # 14.86 10^3/uL (1.8-7.7); Neutrophils % 81.9 %; Nucleated Red Blood Cells % 0 %; Platelet Count 170 10^3/cmm (130-400); Red Blood Count 3.38 10^6/uL (4.1-5.3); Red Cell Distribution Width 14.6 % (12.1-15.1); White Blood Count 18.1 10^3/uL (4.0-10.0)
[2023-01-09 05:28] LABS: Slide Review Slide Review Perform
[2023-01-09] MEDS: doxycycline 100 MG in sodium chloride 0.9% (plus) 100 ML IV ×2 (05:29→17:44)
[2023-01-09 05:34] LABS: Lactate (Lactic Acid level) 1.1 mmol/L (0.5-2.2)
[2023-01-09 05:37] LABS: Anion Gap 15.4 (5-19); Blood Urea Nitrogen 11 mg/dL (8-23); C Reactive Protein 265.8 mg/L (0.0-4.9); Calcium 8.1 mg/dL (8.5-10.5); Carbon Dioxide 20 mmol/L (22-29); Chloride 106 mmol/L (98-107); Glomerular Filtration Rate 84.8 mL/min (90-130); Glucose 102 mg/dL (65-115); Osmolality Calculated 286 mOsm/kg (285-295); Potassium 3.4 mmol/L (3.5-5.1); Sodium 138 mmol/L (136-145)
[2023-01-09] MEDS: acetaminophen 325 mg Tablet 650 MG PO ×3 (07:53→21:59)
[2023-01-09] MEDS: piperacillin-tazobactam 3.375 GM in sodium chloride 0.9% (plus) 50 ML IV ×2 (07:53→16:40)
[2023-01-09] MEDS: midodrine 5 mg TABLET 10 MG PO ×2 (07:53→16:40)
[2023-01-09 08:39] LABS: Vancomycin Trough 8.6 ug/mL (10-15)
[2023-01-09] MEDS: vancomycin 1,500 MG/300 ML PIGGYBACK 200 MG IV ×2 (10:07→22:44)
[2023-01-09 16:04] LABS: EBV IGM TEST <36.00 U/mL
[2023-01-09 16:04] LABS: Lyme AB Screen <0.90 index
--- NOTE | 2023-01-09 16:36 | P.PN_ITS ---
Subjective Subjective: Patient was seen this morning, she continues to complain of shortness of with exertion, weakness, fatigue Vitals/I&O/Wt Last Vital Signs Temp 99.1 F 01/09/23 15:56 Pulse 86 01/09/23 15:56 Resp 18 01/09/23 15:56 BP 107/71 01/09/23 15:56 Pulse Ox 95 01/09/23 15:56 O2 Del Method 01/09/23 15:56 O2 Flow Rate 2 01/09/23 08:46 01/09/23 01/09/23 01/09/23 06:59 14:59 22:59 Intake Total 650 / 3980 580 / 580 250 / 830 Output Total 1250 / 1350 Balance -600 / 2630 580 / 580 250 / 830 Weight last 48 hrs Weight 90.537 kg Physical Exam Const: COMMON NORMALS: no acute distress and patient oriented x3 Resp: COMMON NORMALS: normal respiratory effort, No retractions, No use of accessory muscles and clear to auscultation bilaterally AUSCULTATION: clear to auscultation bilaterally Cardio: COMMON NORMALS: regular rate, regular rhythm, S1 normal heart sound present and S2 normal heart sound present RATE: regular rate RHYTHM: regular rhythm HEART SOUNDS: S1 normal heart sound present and S2 normal heart sound present GI: COMMON NORMALS: Normal to inspection, nondistended, normoactive bowel so unds present and non-tender Extremity: COMMON NORMALS: no pedal edema Neuro: COMMON NORMALS: patient oriented x3 Psych: COMMON NORMALS: mental status grossly normal Data 01/09/23 04:21 01/09/23 04:21 Micro: Microbiology 01/08/23 11:06 Gram Stain - Final Sputum - Expectorated Sputum Sputum Culture - Preliminary 01/07/23 13:12 Blood Culture - Preliminary Blood NEGATIVE TO DATE 01/07/23 13:05 Blood Culture - Preliminary Blood NEGATIVE TO DATE 01/07/23 22:05 MRSA Culture - Final Nose 01/08/23 10:15 Bacterial Antigens - Final Urine,Voided A&P Assessment and plan (1) Sepsis: (2) Fever: (3) Diverticulitis: (4) Lactic acidosis: (5) Left upper lobe pneumonia: (6) Low blood pressure: Plan Fever, secondary left upper lobe pneumonia -Secondary to left upper lobe pneumonia seen on chest CT -She denies any abdominal pain complaints, no diarrhea, no constipation, no bloody or black stools, on examination is really not tender in the abdomen, she does not report chronic abdominal discomfort, but really its not bothering her now -CT abdomen pelvis shows ? Mild thickening of the sigmoid colon with slight surrounding induration suspicious for mild or early acute diverticulitis. -I am not exactly convinced that diverticulitis is a reason she is having fe vers, not feeling well, nonetheless she received Cipro and Flagyl in the ER -Urinalysis was unremarkable, no CVA tenderness -We will Pro-Jose is over 21 -CRP to 265 -White blood cell count 18 -Her flu and COVID were negative -Given her cervical lymphadenopathy she does have features of a viral illness, -She has had complaints of headache since her fall about a week ago, but in is not particularly bad in her words today, no blurry vision, Kernig sign negative Brudzinski sign negative, head CT within normal limits, no neck pain this morning, no neck stiffness -She is alert oriented x3, following all commands -Plan -Admit to general medical floors -Neurochecks, monitor respiratory status -Continue vancomycin, Zosyn, doxycycline -Continue fluid bolus therapy, midodrine 10 3 times daily -Follow blood cultures, sputum cultures, urine cultures -Tramadol added for pain, 50 mg every 8 hours as needed -Tick panel -Full code -Lovenox for DVT prophylaxis Attestations Medical Necessity Statement*: Patient requires hospitalization for left upper lobe pneumonia Diagnoses Sepsis A41.9 Fever R50.9 Diverticulitis K57.92 Lactic acidosis E87.20 Left upper lobe pneumonia J18.9 Low blood pressure I95.9
[2023-01-09] MEDS: enoxaparin 40 mg/0.4 mL Syringe SUBCUT (17:44)
[2023-01-09] MEDS: pantoprazole 40 mg SDV IVP (17:45)
--- NOTE | 2023-01-09 22:10 | PC.NURSE ---
Previous IV in right hand infiltrated. IV in location stopped, removed, catheter tip intact upon removal. New 20g IV started on anterior right forearm, patent with flush, no pain at site. IV dressing marked and dated by this nurse.
--- NOTE | 2023-01-09 22:12 | PC.NURSE ---
Patient reports intermittent headache on left side of head and requested Tylenol for pain that was rated a 4/10. Patient also stated that she's been having the headache off and on all day, and that she is also having mild shortness of breath as well as upper shoulder pain that is intermitent. Vitals are stable at this time. Dr Kelly notified. Patient resting comfortably in bed with call light within reach.
[2023-01-09] MEDS: TRAMadol 50 mg Tablet PO (22:44)
[2023-01-10] VITALS (15 sets, daily range): BP systolic 102–135; BP diastolic 68–79; PULSE 65–79; RESP 15–19; TEMP 36.4–37; O2SAT 92–97
[2023-01-10] MEDS: midodrine 5 mg TABLET 10 MG PO ×2 (00:13→10:42)
[2023-01-10] MEDS: piperacillin-tazobactam 3.375 GM in sodium chloride 0.9% (plus) 50 ML IV ×3 (02:23→19:43)
[2023-01-10] MEDS: ondansetron 2 mg/ML SDV 2 mL 4 MG IVP ×2 (04:46→23:53)
--- NOTE | 2023-01-10 04:51 | PC.NURSE ---
Patient stated that she felt nauseous. Zofran IVP administered.
[2023-01-10] MEDS: acetaminophen 325 mg Tablet 650 MG PO ×2 (04:58→21:50)
[2023-01-10 05:17] LABS: Basophils % 0.3 %; Eosinophils # 0.1 10^3/uL (0.0-0.8); Eosinophils % 0.8 %; Hematocrit 33.3 % (37.0-47.0); Hemoglobin 10.4 g/dL (11.5-15.3); Lymphocytes # 2.1 10^3/uL (0.8-4.8); Lymphocytes % 17.7 %; Mean Corpuscular HGB Conc 31.2 g/dL (30.0-36.0); Mean Platelet Volume 9.7 fL (7.4-10.4); Monocytes # 0.4 10^3/uL (0.2-0.9); Monocytes % 3.5 %; Neutrophils # 9.16 10^3/uL (1.8-7.7); Neutrophils % 76.5 %; Nucleated Red Blood Cells % 0 %; Platelet Count 166 10^3/cmm (130-400); Red Blood Count 3.47 10^6/uL (4.1-5.3); Red Cell Distribution Width 14.5 % (12.1-15.1)
[2023-01-10 05:38] LABS: Lactate (Lactic Acid level) 0.9 mmol/L (0.5-2.2)
[2023-01-10 05:39] LABS: Anion Gap 14.7 (5-19); Blood Urea Nitrogen 8 mg/dL (8-23); C Reactive Protein 142.7 mg/L (0.0-4.9); Calcium 8.4 mg/dL (8.5-10.5); Carbon Dioxide 21 mmol/L (22-29); Chloride 107 mmol/L (98-107); Glomerular Filtration Rate 101.3 mL/min (90-130); Glucose 92 mg/dL (65-115); Osmolality Calculated 286 mOsm/kg (285-295); Potassium 3.7 mmol/L (3.5-5.1); Sodium 139 mmol/L (136-145)
[2023-01-10 05:41] LABS: Procalcitonin 11.82 ng/mL (0-0.5)
[2023-01-10] MEDS: doxycycline 100 MG in sodium chloride 0.9% (plus) 100 ML IV (06:23)
[2023-01-10] MEDS: albuterol 2.5 mg/3 mL Neb INHALATION (08:36)
[2023-01-10] MEDS: vancomycin 1,500 MG/300 ML PIGGYBACK 200 MG IV (10:58)
--- NOTE | 2023-01-10 14:41 | P.PN_ITS ---
Subjective Subjective: Patient was seen this morning, she continues to complain of weakness, shortness of breath but feels better Vitals/I&O/Wt Last Vital Signs Temp 97.6 F 01/10/23 12:00 Pulse 71 01/10/23 12:00 Resp 16 01/10/23 12:00 BP 135/77 01/10/23 12:00 Pulse Ox 92 01/10/23 12:00 O2 Del Method 01/10/23 12:00 O2 Flow Rate 2 01/10/23 08:00 01/09/23 01/10/23 01/10/23 22:59 06:59 14:59 Intake Total 604.583 / 1184.583 350 / 1534.583 240 / 240 Output Total 301 / 301 800 / 1101 Balance 303.583 / 883.583 -450 / 433.583 240 / 240 Physical Exam Const: COMMON NORMALS: no acute distress and patient oriented x3 Resp: COMMON NORMALS: normal respiratory effort, No retractions and No use of accessory muscles AUSCULTATION: wheezes Cardio: COMMON NORMALS: regular rate, regular rhythm, S1 normal heart sound present and S2 normal heart sound present RATE: regular rate RHYTHM: regular rhythm HEART SOUNDS: S1 normal heart sound present and S2 normal heart sound present GI: COMMON NORMALS: Normal to inspection, nondistended, normoactive bowel sounds present and non-tender Extremity: COMMON NORMALS: no pedal edema Neuro: COMMON NORMALS: patient oriented x3 Psych: COMMON NORMALS: mental status grossly normal Data 01/10/23 05:05 01/10/23 05:05 Micro: Microbiology 01/08/23 11:06 Gram Stain - Final Sputum - Expectorated Sputum Sputum Culture - Final A&P Assessment and plan (1) Sepsis: (2) Fever: (3) Diverticulitis: (4) Lactic acidosis: (5) Left upper lobe pneumonia: (6) Low blood pressure: Plan Fever, secondary left upper lobe pneumonia -Secondary to left upper lobe pneumonia seen on chest CT -She denies any abdominal pain complaints, no diarrhea, no constipation, no blo javier or black stools, on examination is really not tender in the abdomen, she does not report chronic abdominal discomfort, but really its not bothering her now -CT abdomen pelvis shows ? Mild thickening of the sigmoid colon with slight surrounding induration suspicious for mild or early acute diverticulitis. -I am not exactly convinced that diverticulitis is a reason she is having fevers , not feeling well, nonetheless she received Cipro and Flagyl in the ER -Urinalysis was unremarkable, no CVA tenderness -WBC 12 -CRP to 142 -Procalcitonin 11 -Her flu and COVID were negative -Given her cervical lymphadenopathy she does have features of a viral illness, -She has had complaints of headache since her fall about a week ago, but in is not particularly bad in her words today, no blurry vision, Kernig sign negative Brudzinski sign negative, head CT within normal limits, no neck pain this morning, no neck stiffness -She is alert oriented x3, following all commands -Plan -Admit to general medical floors -Neurochecks, monitor respiratory status -Continue Zosyn, stop vancomycin MRSA nares negative, continue doxycycline -Wean off midodrine -Follow blood cultures, sputum cultures, urine cultures -Tramadol added for pain, 50 mg every 8 hours as needed -Tick panel -Full code -Lovenox for DVT prophylaxis Attestations Medical Necessity Statement*: Patient requires hospitalization for pneumonia Diagnoses Sepsis A41.9 Fever R50.9 Diverticulitis K57.92 Lactic acidosis E87.20 Left upper lobe pneumonia J18.9 Low blood pressure I95.9
[2023-01-10] MEDS: pantoprazole 40 mg SDV IVP (18:12)
[2023-01-10] MEDS: enoxaparin 40 mg/0.4 mL Syringe SUBCUT (18:13)
[2023-01-10] MEDS: doxycycline 100 mg Tablet PO (18:13)
[2023-01-10 22:35] LABS: HEP C RNA Viral Load Quant <1.18 NOT DETECTED Log IU/mL (NOT DETECTED); HEP C RNA Viral Load Quant <15 NOT DETECTED IU/mL (NOT DETECTED)
[2023-01-11] VITALS: BP 100/63; PULSE 77; RESP 24; TEMP 36.9; O2SAT 92
[2023-01-11] MEDS: piperacillin-tazobactam 3.375 GM in sodium chloride 0.9% (plus) 50 ML IV (02:35)
[2023-01-11 05:23] VITALS: BP 126/84; PULSE 72; RESP 16; TEMP 36.8; O2SAT 97
[2023-01-11 05:52] LABS: Basophils % 0.4 %; Eosinophils # 0.1 10^3/uL (0.0-0.8); Eosinophils % 1.1 %; Hematocrit 34.1 % (37.0-47.0); Hemoglobin 10.9 g/dL (11.5-15.3); Lymphocytes # 1.9 10^3/uL (0.8-4.8); Lymphocytes % 26.1 %; Mean Corpuscular Hemoglobin 29.9 pg (28.0-34.0); Mean Corpuscular Volume 93.7 fl (81-99); Monocytes # 0.4 10^3/uL (0.2-0.9); Monocytes % 5.8 %; Neutrophils # 4.75 10^3/uL (1.8-7.7); Neutrophils % 64.2 %; Nucleated Red Blood Cells % 0 %; Platelet Count 185 10^3/cmm (130-400); Red Blood Count 3.64 10^6/uL (4.1-5.3); Red Cell Distribution Width 14.2 % (12.1-15.1); White Blood Count 7.4 10^3/uL (4.0-10.0)
[2023-01-11 06:08] LABS: C Reactive Protein 76.6 mg/L (0.0-4.9)
[2023-01-11 06:17] LABS: Anion Gap 16.1 (5-19); Blood Urea Nitrogen 5 mg/dL (8-23); Calcium 8.8 mg/dL (8.5-10.5); Carbon Dioxide 23 mmol/L (22-29); Chloride 105 mmol/L (98-107); Glomerular Filtration Rate 101.3 mL/min (90-130); Glucose 99 mg/dL (65-115); Osmolality Calculated 289 mOsm/kg (285-295); Potassium 3.1 mmol/L (3.5-5.1); Procalcitonin 5.55 ng/mL (0-0.5); Sodium 141 mmol/L (136-145)
[2023-01-11 07:31] VITALS: BP 123/84; PULSE 72; RESP 16; TEMP 36.7; O2SAT 96
[2023-01-11 07:35] VITALS: PULSE 76; O2SAT 96
[2023-01-11] MEDS: doxycycline 100 mg Tablet PO (07:56)
[2023-01-11] MEDS: potassium chloride ER 20 mEq Tablet 40 MEQ PO (08:56)
[2023-01-11 10:53] VITALS: O2SAT 93; O2SAT 94
--- NOTE | 2023-01-11 11:05 | PC.SOCIAL ---
Pt didnt qualify for oxygen at this time.
--- NOTE | 2023-01-11 11:28 | P.DS_ITS ---
Discharge Providers Date of Admission: 01/07/23 16:17 Date of Discharge: January 11, 2023 Attending Provider at Admission: Itz Waite MD Attending Provider at Discharge: Itz Waite MD Primary Care Provider: THI Chavez Diagnoses at Discharge Discharge Diagnosis (1) Sepsis: Status: Acute (2) Fever: Status: Acute (3) Diverticulitis: Status: Acute (4) Lactic acidosis: Status: Acute (5) Left upper lobe pneumonia: Status: Acute (6) Low blood pressure: Status: Acute Reason for Visit Reason for Visit: FLU LIKE SYMP Hospital Course Hospital Course Mary Grace Segura is a 62 year old female with a past medical history of hepatitis C status posttreatment, who presents to [facility] due to fatigue, malaise, shortness of breath, cough, lung pain, fevers for the last 24 hours.? Patient tells me that this morning she woke up and she was not feeling well, felt fatigue, malaise she tells me almost felt like she had the flu, she felt short of breath, she had a nonproductive cough she was having pain in she tells me her lungs are hurting her when she is taking a deep breath, denies any chest pain, no chest wall pain it just hurts when I breathe she tells me, and also hurts when it radiates to my back.? She tells me that her was sick about a week ago, he also had like flulike symptoms.? She was also saw sick a few weeks ago had flulike symptoms but her symptoms resolved.? Her son has also been sick he thought he was exposed to COVID at work, but he tested himself and this was about a week ago he tested negative.? She was doing well yesterday she tells me she actually went on a road trip yesterday, no tick bites, no dog or cat bites, no known exposures.? She does tell me that roughly a few weeks ago she fell she hit her head, and she went to the ER at [facility] and they told her that she was okay she tells me that periodically she does get headaches, currently she is not particularly having a headache, no neck pain, no neck stiffness, no range of motion, no blurry vision.? She denies any abdominal pain, no diarrhea she had a bowel movement this morning.? No bloody or black stools.? No dysuria, no CVA tenderness.? She does tell me that she has outbreaks of herpes, she what she calls herpes, that occur along her buttocks, currently she does not have a outbreak of herpes denies being sexually active, denies history of HIV or STDs.? Does report a history of hepatitis C for which she was treated Patient was admitted to [facility] for fevers, secondary to left upper lobe pneumonia, received broad-spectrum antibiotic therapy, flu negative, COVID-negative, respiratory cultures so far negative, blood culture far negative, overall clinically improved, remained afebrile, ambulating without symptomatology. Discharged on 6 remaining days of Levaquin, with follow-up with primary care provider as outpatient. Given her dense left upper lobe pneumonia I have set up an appoint with pulmonary in 6 weeks to repeat CAT scan or consideration of bronchoscopy to rule out underlying malignancy Physical Exam Const: COMMON NORMALS: no acute distress and patient oriented x3 Resp: COMMON NORMALS: normal respiratory effort, No retractions, No use of accessory muscles and clear to auscultation bilaterally AUSCULTATION: clear to auscultation bilaterally Cardio: COMMON NORMALS: regular rate, regular rhythm, S1 normal heart sound present and S2 normal heart sound present RATE: regular rate RHYTHM: regular rhythm HEART SOUNDS: S1 normal heart sound present and S2 normal heart sound present GI: COMMON NORMALS: Normal to inspection, nondistended, normoactive bowel sounds present and non-tender Extremity: COMMON NORMALS: no pedal edema Neuro: COMMON NORMALS: patient oriented x3 Psych: COMMON NORMALS: mental status grossly normal Discharge Data Studies Completed and Pending Completed Studies During Hospitalization Category Date Time Status CT abdomen pelvis w con* [id number] Stat Cat Scan 01/07/23 14:[address] chest wo con [id number] Stat Cat Scan 01/07/23 16:[address] head wo con* [id number] Stat Cat Scan 01/07/23 16:47 Completed XR chest 1V portable [id number] Stat Exams 01/07/23 12:17 Completed Pending at discharge Category Date Time Status Blood Culture Stat Lab 01/07/23 13:12 Results Tick Panel Stat Lab 01/07/23 16:53 Results Radiology Impressions Chest X-Ray 01/07/23 12:17 IMPRESSION: Negative portable chest. Abdomen/Pelvis CT 01/07/23 14:54 IMPRESSION: 1. Mild thickening of the sigmoid colon with slight surrounding induration suspicious for mild or early acute diverticulitis. 2. Diffuse fatty infiltration liver. Mild hepatomegaly. 3. Prior cholecystectomy. 4. Small esophageal hiatal hernia. 5. No other significant interval changes compared to previous. Chest CT 01/07/23 16:47 IMPRESSION: 1. Left upper lobe pneumonia, follow-up exam in 1 month advised to assess for resolution. 2. Small hiatal hernia. Head CT 01/07/23 16:47 IMPRESSION: No acute intracranial abnormality. Laboratory Results WBC 7.4 10^3/uL (4.0-10.0) 01/11/23 05:22 RBC 3.64 10^6/uL (4.1-5.3) L 01/11/23 05:22 Hgb 10.9 g/dL (11.5-15.3) L 01/11/23 05:22 Hct 34.1 % (37.0-47.0) L 01/11/23 05:22 MCV 93.7 fl (81-99) 01/11/23 05:22 MCH 29.9 pg (28.0-34.0) 01/11/23 05:22 MCHC 32.0 g/dL (30.0-36.0) 01/11/23 05:22 RDW 14.2 % (12.1-15.1) 01/11/23 05:22 Plt Count 185 10^3/cmm (130-400) 01/11/23 05:22 MPV 10.0 fL (7.4-10.4) 01/11/23 05:22 Neut % (Auto) 64.2 % 01/11/23 05:22 Lymph % (Auto) 26.1 % 01/11/23 05:22 [place] % (Auto) 5.8 % 01/11/23 05:22 Eos % (Auto) 1.1 % 01/11/23 05:22 Baso % (Auto) 0.4 % 01/11/23 05:22 Neut # (Auto) 4.75 10^3/uL (1.8-7.7) 01/11/23 05:22 Lymph # (Auto) 1.9 10^3/uL (0.8-4.8) 01/11/23 05:22 [place] # (Auto) 0.4 10^3/uL (0.2-0.9) 01/11/23 05:22 Eos # (Auto) 0.1 10^3/uL (0.0-0.8) 01/11/23 05:22 Baso # (Auto) 0.0 10^3/uL (0.0-0.1) 01/11/23 05:22 Nucleated RBC % (auto) 0 % 01/11/23 05:22 Total Counted 100 (0-100) 01/08/23 06:06 Atypical Lymphs % 0.0 % (0-5) 01/08/23 06:06 Absolute Neutrophils 19.0 10^3/cmm (1.4-6.5) H 01/08/23 06:06 Segmented Neutrophils 52 % 01/08/23 06:06 Abs Segm Neuts (Man) 10.9 10/cmm (1.6-7.1) H 01/08/23 06:06 Band Neutrophils 39.0 % 01/08/23 06:06 Abs Band Neuts (Man) 8.2 10^3/cmm (0.0-1.2) H 01/08/23 06:06 Absolute Lymphocytes 0.4 10^3/cmm (1.2-3.4) L 01/08/23 06:06 Lymphocytes (Manual) 2 % 01/08/23 06:06 Monocytes (Manual) 4.0 % 01/08/23 06:06 Absolute Monocytes 0.8 10^3/cmm (0.1-0.6) H 01/08/23 06:06 Eosinophils (Manual) 0 % 01/08/23 06:06 Absolute Eosinophils 0.0 10^3/cmm (0.0-0.7) 01/08/23 06:06 Basophils (Manual) 0.0 % 01/08/23 06:06 Absolute Basophils 0.0 10^3/cmm (0.0-0.2) 01/08/23 06:06 Metamyelocytes 3.0 % 01/08/23 06:06 Nucleated RBCs 1.0 /100WBC (0-1) 01/08/23 06:06 Nucleated RBCs # 0.0 /100WBC 01/11/23 05:22 Toxic Granulation 1+ H 01/08/23 06:06 Platelet Estimate Normal (Normal) 01/08/23 06:06 ESR 10 mm/hr (0-15) 01/07/23 13:05 Sodium 141 mmol/L (136-145) 01/11/23 05:22 Potassium 3.1 mmol/L (3.5-5.1) L 01/11/23 05:22 Chloride 105 mmol/L (98-107) 01/11/23 05:22 Carbon Dioxide 23 mmol/L (22-29) 01/11/23 05:22 Anion Gap 16.1 (5-19) 01/11/23 05:22 BUN 5 mg/dL (8-23) L 01/11/23 05:22 Creatinine 0.6 mg/dL (0.5-0.9) 01/11/23 05:22 GFR Calculation 101.3 mL/min (90-130) 01/11/23 05:22 Glucose 99 mg/dL (65-115) 01/11/23 05:22 Calculated Osmolality 289 mOsm/kg (285-295) 01/11/23 05:22 Lactic Acid 2.9 mmol/L (0.5-2.2) H 01/08/23 16:32 Lactic Acid (Sepsis) 1.3 mmol/L (0.5-2.2) 01/08/23 19:04 Lactate 0.9 mmol/L (0.5-2.2) 01/10/23 05:05 Calcium 8.8 mg/dL (8.5-10.5) 01/11/23 05:22 Total Bilirubin 0.8 mg/dL (0.15-1.2) 01/07/23 13:05 AST 25 U/L (0-32) 01/07/23 13:05 ALT 17 U/L (0-33) 01/07/23 13:05 Alkaline Phosphatase 97 U/L (35-105) 01/07/23 13:05 C-Reactive Protein 76.6 mg/L (0.0-4.9) H 01/11/23 05:22 Total Protein 7.4 g/dL (6.6-8.7) 01/07/23 13:05 Albumin 4.6 g/dL (3.5-5.2) 01/07/23 13:05 Globulin 2.8 g/dL (1.3-4.6) 01/07/23 13:05 Procalcitonin 5.55 ng/mL (0-0.5) H 01/11/23 05:22 TSH 0.76 uIU/mL (0.27-4.20) 01/07/23 14:42 Random Cortisol 17.09 ug/dL (2.47-19.5) 01/08/23 06:06 Urine Color Yellow (Yellow) 01/07/23 14:19 Urine Appearance Clear (CLEAR) 01/07/23 14:19 Urine pH 5 (5-7) 01/07/23 14:19 Ur Specific [place] 1.015 (1.005-1.030) 01/07/23 14:19 Urine Protein Neg (Negative) 01/07/23 14:19 Urine Glucose (UA) Norm (Normal) 01/07/23 14:19 Urine Ketones Negative (Negative) 01/07/23 14:19 Urine Blood 2+ (Negative) H 01/07/23 14:19 Urine Nitrate Negative (Negative) 01/07/23 14:19 Urine Bilirubin Neg (Negative) 01/07/23 14:19 Urine Urobilinogen Norm mg/dL (Negative) 01/07/23 14:19 Ur Leukocyte Esterase Negative (Negative) 01/07/23 14:19 Urine RBC 5-10 /hpf (0-2) H 01/07/23 14:19 Urine WBC None /hpf (0-5) 01/07/23 14:19 Ur Squamous Epith Cells 0-4 /hpf (0-5) H 01/07/23 14:19 Amorphous Sediment Not Reportable 01/07/23 14:19 Urine Bacteria None /hpf (NONE) 01/07/23 14:19 Urine Mucus 1+ /hpf 01/07/23 14:19 Nasal Influ A H1 2008 PCR Not detected (NOT DETECT) 01/07/23 22:05 Vancomycin Trough 8.6 ug/mL (10-15) L 01/09/23 08:03 Urine Opiates Screen Positive ng/mL (Negative) H 01/07/23 14:19 Ur Barbiturates Screen Negative ng/mL (Negative) 01/07/23 14:19 Ur Phencyclidine Scrn Negative ng/mL (Negative) 01/07/23 14:19 Ur Amphetamines Screen Negative ng/mL (Negative) 01/07/23 14:19 U Benzodiazepines Scrn Negative ng/mL (Negative) 01/07/23 14:19 Urine Cocaine Screen Negative ng/mL (Negative) 01/07/23 14:19 U Marijuana (THC) Screen Positive ng/mL (Negative) H 01/07/23 14:19 Adenovirus (PCR) Not detected (NOT DETECT) 01/07/23 22:05 Lyme Ab (Western Blot) <0.90 index 01/08/23 06:06 C. pneumoniae DNA (PCR) Not detected (NOT DETECT) 01/07/23 22:05 Coronavirus 229E (PCR) Not detected (NOT DETECT) 01/07/23 22:05 EBV IgG Ab 646.00 U/mL H 01/07/23 13:05 EBV IgM Ab <36.00 U/mL 01/07/23 13:05 EBV Nuclear Antigen 63.50 U/mL H 01/07/23 13:05 EBV Interpretation See note 01/07/23 13:05 Hepatitis A IgM Ab Non-reactive (Nonreactive) 01/07/23 13:05 Hep Bs Antigen Non-reactive (Nonreactive) 01/07/23 13:05 Hep B Core IgM Ab Non-reactive (Nonreactive) 01/07/23 13:05 Hepatitis C Antibody Reactive (Nonreactive) H 01/07/23 13:05 HCV RNA (PCR) IUs/ml <1.18 not detected Log IU/mL (NOT DETECTED) 01/07/23 19:56 HCV RNA (PCR) IU log10 <15 not detected IU/mL (NOT DETECTED) 01/07/23 19:56 HIV 1&2 Ab & HIV 1 Ag Non-reactive (Non-Reactiv) 01/07/23 13:05 HIV 1&2 Antibody Non-reactive (Non-Reactiv) 01/07/23 13:05 Human Metapneumovir PCR Not detected (NOT DETECT) 01/07/23 22:05 Influenza A (H1) PCR Not detected (NOT DETECT) 01/07/23 22:05 Influenza A (H3) PCR Not detected (NOT DETECT) 01/07/23 22:05 Influenza Type A Ag negative (Negative) 01/07/23 13:07 Influenza Type A (PCR) Not detected (NOT DETECT) 01/07/23 22:05 Influenza Type B Ag negative (Negative) 01/07/23 13:07 Influenza Type B (PCR) Not detected (NOT DETECT) 01/07/23 22:05 M. pneumoniae (PCR) Not detected (NOT DETECT) 01/07/23 22:05 Parainfluenza 1 (PCR) Not detected (NOT DETECT) 01/07/23 22:05 Parainfluenza 2 (PCR) Not detected (NOT DETECT) 01/07/23 22:05 Parainfluenza 3 (PCR) Not detected (NOT DETECT) 01/07/23 22:05 Parainfluenza 4 (PCR) Not detected (NOT DETECT) 01/07/23 22:05 RSV Type A (PCR) Not detected (NOT DETECT) 01/07/23 22:05 RSV Type B (PCR) Not detected (NOT DETECT) 01/07/23 22:05 Entero/Rhino (PCR) Not detected (NOT DETECT) 01/07/23 22:05 SARS-CoV-2 (PCR) Not detected (NOT DETECT) 01/07/23 22:05 SARS-CoV-2 Ag (Rapid) negative (Negative) 01/07/23 13:07 Vitals Last Vital Signs Temp 98.1 F 01/11/23 07:31 Pulse 76 01/11/23 07:35 Resp 16 01/11/23 07:31 BP 123/84 01/11/23 07:31 Pulse Ox 94 01/11/23 10:53 O2 Del Method 01/11/23 07:35 O2 Flow Rate 2 01/11/23 07:35 Discharge Plan Discharge Patient Disposition: Home Condition: Stable Prescriptions: New levofloxacin 750 mg tablet 750 mg PO DAILY 6 Days Qty: 6 0RF albuterol sulfate 90 mcg/actuation HFA aerosol inhaler 1 inh inhalation Q6H PRN (Reason: shortness of breath or wheezing) Qty: 8.5 0RF benzonatate 100 mg capsule 100 mg PO TID PRN (Reason: cough) 7 Days Qty: 21 0RF Continued acetaminophen 325 mg Tablet 325 mg PO QID PRN (Reason: Pain) Discharge Orders: Discharge Order (Routine); Ordered 01/11/23 Ordered By: Itz Waite Referrals: Datar,Amadeo Maki MD [Physician] - 6 Weeks ([facility]) Mitali Martel FNP [Primary Care Provider] - 01/16/23 11:30 am Discharge Diet: Cardiac Discharge Activity: Resume usual activity Patient Instructions: Opioid Safety Discharge Attestations Time Spent in Discharge Care*: greater than 30 min Quality Metrics Clinical Quality Measures [ No reported AMI, CVA or VTE this stay] Coding Level of Care Code 90531 Total time (in minutes) for Discharge: 40 Diagnoses Sepsis A41.9 Fever R50.9 Diverticulitis K57.92 Lactic acidosis E87.20 Left upper lobe pneumonia J18.9 Low blood pressure I95.9
[2023-01-11 11:33] VITALS: BP 128/89; PULSE 77; RESP 16; TEMP 37; O2SAT 94
[2023-01-12 16:24] LABS: RMSF IGG NOT DETECTED; RMSF IGM NOT DETECTED
[2023-01-14 17:25] LABS: E. Chaffeensis AB IGG <1:64; E. Chaffeensis AB IGM <1:20
== END 2023-01-11 13:19 | disposition home or self-care (01) | DRG 871 ==
LOC: ER 16:16 → MEDSURG 17:18
PROVIDERS: Admitting Provider Family Medicine; Emergency Provider Emergency Medicine; PCP Nurse Practitioner Family; Visit Provider Family Medicine
DX: A41.9 Sepsis, unspecified organism (principal); J18.9 Pneumonia, unspecified organism; K57.32 Diverticulitis of large intestine without perforation or abscess without bleeding; E87.20 Acidosis, unspecified; I95.9 Hypotension, unspecified; R51.9 Headache, unspecified; R20.2 Paresthesia of skin; Z91.81 History of falling; Z90.49 Acquired absence of other specified parts of digestive tract; Z86.19 Personal history of other infectious and parasitic diseases
CPT/HCPCS: 36415; 70450; 71045; 71250; 74177; 80048; 80053; 80074; 80202; 80306; 81001; 82533; 83605; 84145; 84443; 85007; 85025; 85651; 86140; 86403; 86618; 86664; 86665; 86666; 86757; 87040; 87070; 87205; 87426; 87486; 87522; 87581; 87633; 87641; 87804; 87806; 94640; 94664; 94760; 96365; 96367; 96372; 96375; 99285; C9113; J0744; J1650; J1885; J2405; J2543; J2765; J3370; J3490; J7030; J7050; J7120; J7613; Q3014; Q9967

== ENCOUNTER → 2023-01-28 11:16 | Outpatient (BNVA) | payer BC, SELFPAY | PROVIDERS: PCP Family Medicine; Visit Provider Family Medicine | DX: J18.9 Pneumonia, unspecified organism (principal); F32.9 Major depressive disorder, single episode, unspecified; F41.1 Generalized anxiety disorder; K21.9 Gastro-esophageal reflux disease without esophagitis | CPT/HCPCS: 80053 ==

== ENCOUNTER → 2023-01-29 15:18 | Outpatient (BNVA) | payer BC, SELFPAY | PROVIDERS: PCP Family Medicine; Visit Provider Family Medicine | DX: J18.9 Pneumonia, unspecified organism (principal) | CPT/HCPCS: 85025; 86480 ==

== ENCOUNTER → 2023-02-07 14:23 | Outpatient (BNVA) | payer BC, MEDICAID, SELFPAY | PROVIDERS: PCP Family Medicine; Visit Provider Family Medicine | DX: R06.02 Shortness of breath (principal); R09.89 Other specified symptoms and signs involving the circulatory and respiratory systems | CPT/HCPCS: 71046 ==

== ENCOUNTER 2023-03-19 07:43 | Outpatient (CLI) | payer BC, MEDICAID, SELFPAY ==
--- NOTE | 2023-03-19 | CT_ITS ---
WS: [id number] CT chest wo con [id number] HISTORY: SOB TECHNIQUE: Axial imaging performed through the thorax. Coronal and sagittal reformats are submitted. All CT scans at [facility] use at least one of these dose optimization techniques: automated exposure control; mA and/or kV adjustment per patient size (includes targeted exams where dose is mat ched to clinical indication); or iterative reconstruction. CONTRAST: None DLP: 316.22 mGy.cm COMPARISON: 01/07/2023, chest radiograph 02/07/2023 Lungs and central airway: Significant improvement with near complete resolution of previously describ ed LEFT upper lobe pneumonia. There is a small amount scarring and groundglass attenuation in the LEF T upper lobe at the site of pneumonia. Linear area of scar or atelectasis RIGHT upper lobe contacts t he minor fissure. Benign granuloma RIGHT middle and lower lobes. Minimal focal thickening along the R IGHT major fissure. Pleura: Normal. No pleural effusion. Heart and pericardium: Normal size heart with no pericardial effusion. Mediastinum and brennen: No mediastinum or hilar adenopathy. Vessels: Normal size aortic and pulmonary artery. Ascending aorta is minimally ectatic but not dilate d. No coronary artery calcifications. Chest wall and lower neck: No soft tissue masses. Upper abdomen: Prior cholecystectomy. Very minimal thickening of the LEFT adrenal gland. Very mild at herosclerosis suprarenal aorta. Osseous structures: Mild increase in thoracic kyphosis centered in the midthoracic spine. Mild anteri or wedging of T8 and T9. Similar to the prior study. CT/CT chest wo con [id number] IMPRESSION: 1. Significant and near complete resolution of the previously described pneumo ray LEFT upper lobe. There is very minimal linear scarring and groundglass atte nuation now present at the site of the pneumonia. 2. No adenopathy. 3. Prior granulomatous disease. 4. Prior cholecystectomy.
== END 2023-03-19 07:44 | disposition home or self-care (01) ==
LOC: RAD 07:45
PROVIDERS: PCP Family Medicine; Visit Provider Internal Medicine Pulmonary Disease
DX: J18.9 Pneumonia, unspecified organism (principal); R06.02 Shortness of breath; R09.89 Other specified symptoms and signs involving the circulatory and respiratory systems
CPT/HCPCS: 71250

== ENCOUNTER 2023-05-26 16:15 | Emergency (ER) | payer BC, MEDICAID, SELFPAY ==
[2023-05-26 16:22] VITALS: BP 116/75; PULSE 74; RESP 16; TEMP 36.9; O2SAT 98; BMI 29.5
--- NOTE | 2023-05-26 17:08 | XRR_ITS ---
PROCEDURE INFORMATION: Exam: XR Left Foot Exam date and time: 05/26/2023 5:15 PM Age: 63 years old Clinical indication: Blunt trauma; Foot; Left; wagon washer injury TECHNIQUE: Imaging protocol: Radiologic exam of the left foot. Views: 3 or more views. COMPARISON: No relevant prior studies available. FINDINGS: Bones/joints: Gudy-th-cdemlaez hallux valgus. There are small marginal osteophyte formations and subchondral cystic changes across the 1st metatarsal phalangeal joint. There is a normal accessory os trigonum accessory ossicle. Soft tissues: There is edema in the soft tissues dorsal to the forefoot. XR/XR foot LT min 3V* [id number] IMPRESSION: There is edema in the soft tissues dorsal to the forefoot.
[2023-05-26 19:30] VITALS: BP 128/89; PULSE 76; TEMP 37; O2SAT 96
== END 2023-05-26 20:04 | disposition left against medical advice (07) ==
PROVIDERS: Emergency Provider Family Medicine; PCP Family Medicine
DX: Z53.21 Procedure and treatment not carried out due to patient leaving prior to being seen by health care provider (principal)
CPT/HCPCS: 73630

== ENCOUNTER 2023-11-06 09:08 | Outpatient (CLI) | payer BC, MEDICAID, SELFPAY ==
--- NOTE | 2023-11-06 09:16 | MM_ITS ---
WS: [id number] BILATERAL SCREENING DIGITAL TOMOSYNTHESIS MAMMOGRAM WITH CAD HISTORY: Z12.39 - Encounter for other screening for malignant neop... COMPARISON: 07/18/2017 Bilateral CC and MLO views with tomosynthesis and synthetic mammography submitted. Computer aided det ection analyzed. Breast composition: There are scattered areas of fibroglandular density. No suspicious masses, microc alcifications or architectural distortion. IMPRESSION: MM/[place] [id number] BI-RADS: 1-Negative FOLLOW UP: 1 Year Follow-up
== END 2023-11-06 09:09 | disposition home or self-care (01) ==
LOC: RAD 09:08
PROVIDERS: PCP Family Medicine; Visit Provider Family Medicine
DX: Z12.31 Encounter for screening mammogram for malignant neoplasm of breast (principal)
CPT/HCPCS: 77063; 77067

== ENCOUNTER 2023-12-03 02:02 | Emergency (ER) | payer BC, MEDICAID, SELFPAY ==
[2023-12-03 02:09] VITALS: BP 152/99; PULSE 85; RESP 16; TEMP 36.4; O2SAT 92; BMI 29.0
[2023-12-03 02:28] VITALS: BP 134/95; PULSE 78; TEMP 36.4; O2SAT 95
--- NOTE | 2023-12-03 02:42 | XRR_ITS ---
PROCEDURE INFORMATION: Exam: XR Thoracic Spine Exam date and time: 12/03/2023 3:08 AM Age: 63 years old Clinical indication: Patient HX: PT C/O bilateral neck pain below the ears since beginning of November. PT was seen at for an ear infection and was dx with bilateral ear infection. PT finished augmentin and another medication on Saturday. PT still has pain in these areas and tingling in both arms. PT was given steroid shot by jannet bradford Saturday. PT feels like it May be mumps. PT unsure of vaccination but had mumps as a child. PT was hospitalized with pneumonia caused by wan queen and thinks the virus May have something to do with it. PT took acetaminophen and benadryl around 2200. ; Additional info: Pain no trauma TECHNIQUE: Imaging protocol: Radiologic exam of the thoracic spine. Views: 3 views. COMPARISON: CR (NECK, ) 12/03/2023 3:02 AM FINDINGS: Bones/joints: No acute fracture or subluxation noted. A few mild midthoracic old compressions are similar to 02/07/2023. [id number] mid to lower thoracic spine DJD. If pain persists, an MRI may be helpful. Soft tissues: Unremarkable. XR/XR thoracic spine 2V [id number] IMPRESSION: No acute findings.
--- NOTE | 2023-12-03 02:42 | XRR_ITS ---
PROCEDURE INFORMATION: Exam: XR Cervical Spine Exam date and time: 12/03/2023 3:02 AM Age: 63 years old Clinical indication: Patient HX: PT C/O bilateral neck pain below the ears since beginning of November. PT was seen at for an ear infection and was dx with bilateral ear infection. PT finished augmentin and another medication on Saturday. PT still has pain in these areas and tingling in both arms. PT was given steroid shot by jannet bradford Saturday. PT feels like it May be mumps. PT unsure of vaccination but had mumps as a child. PT was hospitalized with pneumonia caused by wan queen and thinks the virus May have something to do with it. PT took acetaminophen and benadryl around 2200. ; Additional info: Neck pain no trauma TECHNIQUE: Imaging protocol: Radiologic exam of the cervical spine. Views: 2 or 3 views. COMPARISON: CT chest wo con [id number] 03/19/2023 8:16 AM FINDINGS: Bones/joints: Moderate mid to lower cervical degenerative change. A couple of levels of minimal chronic listhesis are probably related to facet arthropathy. No acute fracture. Soft tissues: Unremarkable. XR/XR cervical spine 3V* [id number] IMPRESSION: 1. No acute findings. 2. Moderate mid to lower cervical degenerative change.
--- NOTE | 2023-12-03 02:44 | ED_ITS ---
HPI - Neck Pain/Injury 2 General: Chief Complaint: Neck Pain/Injury Stated Complaint: pain in neck & stiff, legs weak ear infections Time Seen by Provider: 12/03/23 02:25 History of Present Illness: Patient presents to the ER with complaints of pain going from her years down to her neck and then down into her middle upper back. Patient was seen in the urgent care and diagnosed with bilateral ear infection and was put on Augmentin. She finished a full round of Augmentin continue to have neck pain went to the urgent care got a shot of steroids and continue to have neck pain. Patient has a appointment with her PCP on Saturday. Patient does have some ringing in her ears and has taken Tylenol it seems to take some of the pain away but not all the pain away. She has not had any imaging on her neck or blood work during this time. Patient does not routinely have neck pain. Review of Systems 2 General: Reports: 10 or more systems reviewed and unremarkable except in HPI and below PFSH ED 2 PFSH: Medical History Major depression Hepatitis C Treated with Peg/riba in 1999. Failed. Surgical History H/O left knee surgery S/P adenoidectomy H/O tubal ligation History of cholecystectomy Family History Father Stroke Father CAD (coronary artery disease) Mother AD (Alzheimer's disease) Social History Smoking and tobacco/nicotine status: never used tobacco/nicotine Second hand smoke exposure: No Alcohol intake: current Alcohol intake frequency: few times a week Substance/Drug Use: current Substance/Drug use frequency: few times a week Physical Exam 2 Const: COMMON NORMALS: no acute distress, average body habitus, patient oriented x3, no limitations, healthy appearing, alert and well nourished HENMT: COMMON NORMALS: normocephalic, atraumatic, hearing grossly normal bilaterally, external ears normal, EAC's normal, TM's normal bilaterally, Normal external nose present, moist oral mucous membranes and oropharynx normal HEAD & SCALP: normocephalic and atraumatic NOSE: Normal external nose present E XTERNAL EAR: Yes external ears normal EXTERNAL AUDITORY CANAL: EAC's normal TYMPANIC MEMBRANE: TM's normal bilaterally Eye: COMMON NORMALS: Equal, round and reactive pupils present, EOMs intact bilaterally, conjunctivae normal and no scleral icterus CONJUNCTIVA: Yes conjunctivae normal PUPIL: Yes Equal, round and reactive pupils present Neck/C-Spine: COMMON NORMALS: full ROM, no lymphadenopathy, supple, no meningeal signs, no JVD and Thyroid normal THYROID: Thyroid normal Lymph: LYMPHATIC: no lymphadenopathy noted Chest: COMMONS NORMALS: normal inspection of the chest and normal palpation of entire chest wall Resp: COMMON NORMALS: normal respiratory effort, No retractions, No use of accessory muscles and clear to auscultation bilaterally AUSCULTATION: clear to auscultation bilaterally Cardio: COMMON NORMALS: no JVD, regular rate, regular rhythm, S1 normal heart sound present, S2 normal heart sound present, No gallops present (Cardio), No clicks present (Cardio), No murmurs present (Cardio) and No rub (Cardio) R ATE: regular rate RHYTHM: regular rhythm HEART SOUNDS: S1 normal heart sound present and S2 normal heart sound present Back/Pelvis: OTHER: Tenderness to palpation left paraspinal musculature in the upper thoracic area. No tenderness to palpation over spinous processes. Neuro: COMMON NORMALS: patient oriented x3 SENSORIUM/ORIENTATION: Yes alert MENINGEAL SIGNS: Yes no meningeal signs Course 2 Vital Signs: Vital signs: Vital Signs Temperature 97.5 F L 12/03/23 04:44 Pulse Rate 72 12/03/23 04:44 Respiratory Rate 16 12/03/23 04:44 Blood Pressure 120/91 12/03/23 04:44 Pulse Oximetry 96 12/03/23 04:44 Oxygen Delivery Me thod Room Air 12/03/23 03:37 MDM - Neck Pain/Injury Medical Decision Making Patient presents to the ER after complaining of pain from her ears to her neck to her shoulder after failing antibiotics, steroids, lab work was obtained which was benign. Imaging was obtained with results are pending. If patient decides she wants to go home. Patient will be called with any positive results of the imaging. Patient be discharged home. Medical Records I reviewed the patient's medical records. Lab Data I reviewed the patient's lab results. 12/03/23 03:35 12/03/23 03:35 Radiology Impressions Cervical Spine X-Ray 12/03/23 02:42 IMPRESSION: 1. No acute findings. 2. Moderate mid to lower cervical degenerative change. Thoracic Spine X-Ray 12/03/23 02:42 IMPRESSION: No acute findings. Laboratory Results WBC 5.31 10^3/uL (3.29-11.43) 12/03/23 03:35 RBC 4.81 10^6/uL (3.85-5.65) 12/03/23 03:35 Hgb 14.70 g/dL (11.27-16.99) 12/03/23 03:35 Hct 43.7 % (36-47) 12/03/23 03:35 MCV 90.9 fl (85-98) 12/03/23 03:35 MCH 30.6 pg (27-33) 12/03/23 03:35 MCHC 33.6 g/dL (30-55) 12/03/23 03:35 RDW 12.7 % (12.1-15.1) 12/03/23 03:35 Plt Count 248 10^3/cmm (157-399) 12/03/23 03:35 MPV 9.2 fL (7.4-10.4) 12/03/23 03:35 Neut % (Auto) 46.5 % 12/03/23 03:35 Lymph % (Auto) 45.2 % 12/03/23 03:35 [place] % (Auto) 5.8 % 12/03/23 03:35 Eos % (Auto) 1.7 % 12/03/23 03:35 Baso % (Auto) 0.6 % 12/03/23 03:35 Neut # (Auto) 2.47 10^3/uL (1.8-7.7) 12/03/23 03:35 Lymph # (Auto) 2.4 10^3/uL (0.8-4.8) 12/03/23 03:35 [place] # (Auto) 0.3 10^3/uL (0.2-0.9) 12/03/23 03:35 Eos # (Auto) 0.1 10^3/uL (0.0-0.8) 12/03/23 03:35 Baso # (Auto) 0.0 10^3/uL (0.0-0.1) 12/03/23 03:35 Nucleated RBC % (auto) 0 % 12/03/23 03:35 Nucleated RBCs # 0.0 /100WBC 12/03/23 03:35 ESR 4 mm/hr (0-15) 12/03/23 03:35 Sodium 140 mmol/L (136-145) 12/03/23 03:35 Potassium 4.2 mmol/L (3.5-5.1) 12/03/23 03:35 Chloride 102 mmol/L (98-107) 12/03/23 03:35 Carbon Dioxide 27 mmol/L (22-29) 12/03/23 03:35 Anion Gap 15.2 (5-19) 12/03/23 03:35 BUN 11 mg/dL (8-23) 12/03/23 03:35 Creatinine 0.7 mg/dL (0.5-0.9) 12/03/23 03:35 GFR Calculation 84.5 mL/min (90-130) L 12/03/23 03:35 Glucose 90 mg/dL (65-115) 12/03/23 03:35 Calculated Osmolality 289 mOsm/kg (285-295) 12/03/23 03:35 Calcium 10.0 mg/dL (8.5-10.5) 12/03/23 03:35 Total Bilirubin 0.3 mg/dL (0.15-1.2) 12/03/23 03:35 AST 21 U/L (0-32) 12/03/23 03:35 ALT 17 U/L (0-33) 12/03/23 03:35 Alkaline Phosphatase 87 U/L (35-105) 12/03/23 03:35 C-Reactive Protein 3.0 mg/L (0.0-4.9) 12/03/23 03:35 Total Protein 7.7 g/dL (6.6-8.7) 12/03/23 03:35 Albumin 4.6 g/dL (3.5-5.2) 12/03/23 03:35 Globulin 3.1 g/dL (1.3-4.6) 12/03/23 03:35 All radiology interpretation(s) finalized by discharge Discharge Plan Discharge Patient Disposition: Home Clinical Impression: Acute neck pain Thoracic back pain Qualifiers: Chronicity: acute Back pain laterality: left Qualified Code(s): M54.6 - Pain in thoracic spine Condition: Stable Prescriptions: No Action mupirocin 2 % ointment 1 applic topical BID 7 Days Qty: 22 0RF amoxicillin-pot clavulanate 875-125 mg tablet 1 tab PO BID 7 Days Qty: 14 0RF pantoprazole 40 mg tablet,delayed release (DR/EC) See Rx Instructions .ROUTE .COMPLEX Qty: 90 0RF Dose Instruction: Take 1 tablet by mouth once daily Rx Instructions: Take 1 tablet by mouth once daily semaglutide 1 mg/dose (4 mg/3 mL) pen injector 0.5 mg SUBCUT .q7 days Qty: 3 2RF Rx Instructions: Start O.25mg once weekly x 4 weeks, then increase to 0.5mg weekly. acetaminophen 325 mg Tablet 325 mg PO QID PRN (Reason: Pain) albuterol sulfate 90 mcg/actuation HFA aerosol inhaler 1 inh inhalation Q6H PRN (Reason: shortness of breath or wheezing) Qty: 8.5 0RF Discharge Orders: Discharge ED (Routine); Ordered 12/03/23 Ordered By: Cory Rodriguez Referrals: Casey Maldonado DO [Primary Care Provider] - 1 week Patient Instructions: Thoracic Pain (ED), Acute Neck Pain (ED) Activity Restrictions/Additional Instructions: Your evaluation in ER including lab work did not show any acute causes of your pain. Your x-rays are pending. If they show any issues that need treatment you will be notified. Otherwise please follow-up with your family practice physician within the next 7 to 10 days for further evaluation and treatment as needed. Coding Level of Care Code ED Neurology Hospitalist for Isai Causey
[2023-12-03] MEDS: ketorolac 60 mg/2 mL INJ IM (03:24)
[2023-12-03 03:37] VITALS: BP 128/84; PULSE 76; O2SAT 99
[2023-12-03 03:43] LABS: Erythrocyte Sedimentation Rate 4 mm/hr (0-15)
[2023-12-03 03:44] LABS: Basophils % 0.6 %; Eosinophils # 0.1 10^3/uL (0.0-0.8); Eosinophils % 1.7 %; Hematocrit 43.7 % (36-47); Lymphocytes # 2.4 10^3/uL (0.8-4.8); Lymphocytes % 45.2 %; Mean Corpuscular HGB Conc 33.6 g/dL (30-55); Mean Corpuscular Hemoglobin 30.6 pg (27-33); Mean Corpuscular Volume 90.9 fl (85-98); Mean Platelet Volume 9.2 fL (7.4-10.4); Monocytes # 0.3 10^3/uL (0.2-0.9); Monocytes % 5.8 %; Neutrophils # 2.47 10^3/uL (1.8-7.7); Neutrophils % 46.5 %; Nucleated Red Blood Cells % 0 %; Platelet Count 248 10^3/cmm (157-399); Red Blood Count 4.81 10^6/uL (3.85-5.65); Red Cell Distribution Width 12.7 % (12.1-15.1); White Blood Count 5.31 10^3/uL (3.29-11.43)
[2023-12-03 03:58] LABS: Alanine Aminotransferase 17 U/L (0-33); Albumin Level 4.6 g/dL (3.5-5.2); Alkaline Phosphatase 87 U/L (35-105); Anion Gap 15.2 (5-19); Aspartate Amino Transferase 21 U/L (0-32); Blood Urea Nitrogen 11 mg/dL (8-23); Carbon Dioxide 27 mmol/L (22-29); Chloride 102 mmol/L (98-107); Globulin 3.1 g/dL (1.3-4.6); Glomerular Filtration Rate 84.5 mL/min (90-130); Glucose 90 mg/dL (65-115); Osmolality Calculated 289 mOsm/kg (285-295); Potassium 4.2 mmol/L (3.5-5.1); Sodium 140 mmol/L (136-145); Total Bilirubin 0.3 mg/dL (0.15-1.2); Total Protein 7.7 g/dL (6.6-8.7)
[2023-12-03 04:20] VITALS: BP 120/91; PULSE 72; O2SAT 96
[2023-12-03 04:44] VITALS: BP 120/91; PULSE 72; RESP 16; TEMP 36.4; O2SAT 96
== END 2023-12-03 04:46 | disposition home or self-care (01) ==
PROVIDERS: Emergency Provider Emergency Medicine; PCP Family Medicine
DX: M54.6 Pain in thoracic spine (principal); M54.2 Cervicalgia; Z86.19 Personal history of other infectious and parasitic diseases
CPT/HCPCS: 72040; 72070; 80053; 85025; 85651; 86140; 96372; 99284; J1885

== ENCOUNTER 2023-12-04 11:26 | Outpatient (CLI) | payer BC, MEDICAID, SELFPAY ==
--- NOTE | 2023-12-04 12:04 | XRR_ITS ---
PROCEDURE INFORMATION: Exam: XR Chest Exam date and time: 12/04/2023 12:18 PM Age: 63 years old Clinical indication: Shortness of breath TECHNIQUE: Imaging protocol: Radiologic exam of the chest. Views: 2 views. COMPARISON: CT chest con [id number] 03/19/2023 8:16 AM FINDINGS: Lungs: Unremarkable. No consolidation. Pleural spaces: Unremarkable. No pleural effusion. No pneumothorax. Heart/Mediastinum: Unremarkable. No cardiomegaly. Bones/joints: Unremarkable. XR/XR chest 2V* [id number] IMPRESSION: No acute findings.
[2023-12-04 12:23] LABS: Erythrocyte Sedimentation Rate 6 mm/hr (0-15)
[2023-12-04 12:40] LABS: Troponin T (5th) Once < 6 ng/L (0-10)
[2023-12-04 12:56] LABS: 25 Hydroxy Vitamin D 23 ng/mL (30-100); Anion Gap 14.1 (5-19); Blood Urea Nitrogen 14 mg/dL (8-23); Calcium 9.7 mg/dL (8.5-10.5); Carbon Dioxide 26 mmol/L (22-29); Chloride 101 mmol/L (98-107); Glomerular Filtration Rate 84.5 mL/min (90-130); Glucose 93 mg/dL (65-115); Magnesium 2.2 mg/dL (1.7-2.3); Osmolality Calculated 284 mOsm/kg (285-295); Potassium 4.1 mmol/L (3.5-5.1); Sodium 137 mmol/L (136-145); Thyroid Stimulating Hormone 0.88 uIU/mL (0.27-4.20); Uric Acid 5.1 mg/dL (2.4-5.7); Vitamin B12 503 pg/mL (232-1245)
[2023-12-04 13:07] LABS: Folate Level > 20.0 ng/mL (4.8-37.3)
[2023-12-04 13:32] LABS: Free T4 Free Thyroxine 1.16 ng/dL (0.82-1.77)
== END 2023-12-04 11:27 | disposition home or self-care (01) ==
LOC: RAD 11:28
PROVIDERS: PCP Family Medicine; Visit Provider Family Medicine
DX: R20.0 Anesthesia of skin (principal); R06.02 Shortness of breath; R20.2 Paresthesia of skin; M54.2 Cervicalgia; R53.83 Other fatigue; R06.00 Dyspnea, unspecified; R79.89 Other specified abnormal findings of blood chemistry; E83.42 Hypomagnesemia
CPT/HCPCS: 36415; 71046; 80048; 82306; 82607; 82746; 83735; 84439; 84443; 84484; 84550; 85651; 86140

== ENCOUNTER 2024-01-31 13:56 | Outpatient (CLI) | payer BC, MEDICAID, SELFPAY ==
--- NOTE | 2024-01-31 14:06 | XR_ITS ---
WS: [id number] Exam: XR chest 2V* [id number] Date/Time of Exam: 01/31/2024 2:08 PM Reason For Exam: COUGH Comparison 12/04/2023. The lungs are clear and fully inflated. Normal cardiomediastinal silhouette and regional bony element s. No pleural effusions. Increased thoracic kyphosis. IMPRESSION: 1. Negative chest.
== END 2024-01-31 13:57 | disposition home or self-care (01) ==
LOC: RAD 13:59
PROVIDERS: PCP Family Medicine; Visit Provider Registered Nurse Neonatal Intensive Care
DX: R05.9 Cough, unspecified (principal)
CPT/HCPCS: 71046

== ENCOUNTER 2024-02-05 15:15 | Emergency (ER) | payer BC, MEDICAID, SELFPAY ==
[2024-02-05 15:20] VITALS: BP 131/85; PULSE 94; RESP 16; TEMP 36.6; O2SAT 96; BMI 28.5
--- NOTE | 2024-02-05 15:26 | XR_ITS ---
WS: [id number] Examination: XR chest 1V portable [id number] Reason for Exam: sob Date: February 05, 2024 Comparison: January 31, 2024 Findings: Heart is not enlarged. The mediastinum is not widened. There is no pulmonary edema or pleural effusion. There is no dense consolidation. Impression: No acute lung process is identified.
--- NOTE | 2024-02-05 15:47 | ECG_ITS ---
[facility] Test Date: 2024-02-05 Pat Name: Mary Grace Segura Department: Room: Gender: Female Role Player: : 1960 Requested By: Ele Santiago Order Number: [id number] Jaclyn MD: Bhavik Ernst M.D. Measurements Intervals [place] Rate: 85 P: 38 AR: 173 QRS: -7 QRSD: 105 T: 34 QT: 372 QTc: 443 Interpretive Statements SINUS RHYTHM INCOMPLETE RIGHT BUNDLE BRANCH BLOCK [90+ ms QRS DURATION, TERMINAL R IN V1/V2, 40+ ms S IN I/aVL/V4/V5/V6] No previous ECG available for comparison Electronically Signed On 02-05-2024 22:11:35 CDT by Bhavik Ernst M.D. [id number]
[2024-02-05 15:49] LABS: Basophils % 0.3 %; Eosinophils # 0.1 10^3/uL (0.0-0.8); Eosinophils % 0.5 %; Hematocrit 37.6 % (36-47); Lymphocytes # 1.7 10^3/uL (0.8-4.8); Lymphocytes % 13.3 %; Mean Corpuscular HGB Conc 33.5 g/dL (30-55); Mean Corpuscular Hemoglobin 30.4 pg (27-33); Mean Corpuscular Volume 90.6 fl (85-98); Mean Platelet Volume 9.1 fL (7.4-10.4); Monocytes # 0.8 10^3/uL (0.2-0.9); Monocytes % 6.4 %; Neutrophils # 9.95 10^3/uL (1.8-7.7); Nucleated Red Blood Cells % 0 %; Platelet Count 299 10^3/cmm (157-399); Red Blood Count 4.15 10^6/uL (3.85-5.65); Red Cell Distribution Width 12.8 % (12.1-15.1); White Blood Count 12.58 10^3/uL (3.29-11.43)
[2024-02-05 16:06] LABS: Add Urine Microscopic? YES; Bilirubin Urine Neg (Negative); Blood Urine 2+ (Negative); Glucose Urine UA Norm (Normal); Influenza A by IFA negative (Negative); Influenza B by IFA negative (Negative); Ketones Urine 1+ (Negative); Leukocyte Esterase Urine Negative (Negative); Nitrate Urine Negative (Negative); Protein Urine Trace (Negative); Specific Gravity, Urine 1.005 (1.005-1.030); Urine Appearance Clear (CLEAR); Urine Color Yellow (Yellow); Urobilinogen Urine Norm (Negative); pH Urine 5 (5-7)
[2024-02-05 16:08] LABS: RBC Urine 0-4 /hpf (0-2); Squamous Epithelial Cell Urine 0-4 /hpf (0-5); Transitional Epi Cells Urine RARE /hpf; WBC Urine 0-4 /hpf (0-5)
[2024-02-05 16:09] LABS: Add Urine Culture? No; Mucus Urine TRACE /hpf
--- NOTE | 2024-02-05 16:14 | W.ED.FEVER ---
HPI - Fever General: Chief Complaint: Fever Stated Complaint: sob, fever, cough Time Seen by Provider: 02/05/24 15:24 Source: patient Mode of arrival: ambulatory Limitations: no limitations History of Present Illness: 63-year-old female states over the last 5 days she has had some generalized malaise body aches she states she had a temp up to 100.2 along with slight cough states she was seen by urgent care on Saturday had a negative x-ray states she had no improvement since then. She denies any pain anywhere denies any vomiting she denies any worsening improving factors. Associated symptoms: Deny abdominal pain, chills, chest pain, diarrhea, dysuria, headache(s), nausea or vomiting Review of Systems Const: Reports: fatigue; Denies: fever(s), chills, body aches or change in appetite Eyes: Denies: blurry vision or eye discomfort ENMT: Denies: throat pain or dental pain Card: Denies: chest pain Resp: Reports: non-productive cough; Denies: dyspnea GI: Denies: abdominal pain, nausea, vomiting or diarrhea : Denies: dysuria Musc: Denies: neck pain or back pain Skin/Breast: Denies: rash Neuro: Denies: headache(s) PFSH ED PFSH: Medical History Major depression Hepatitis C Treated with Peg/riba in 1999. Failed. Surgical History H/O left knee surgery S/P adenoidectomy H/O tubal ligation History of cholecystectomy Family History Father Stroke Father CAD (coronary artery disease) Mother AD (Alzheimer's disease) Social History Smoking and tobacco/nicotine status: never used tobacco/nicotine Second hand smoke exposure: No Alcohol intake: former Substance/Drug Use: former Physical Exam Const: COMMON NORMALS: no acute distress, patient oriented x3 and healthy appearing HENMT: COMMON NORMALS: normocephalic, atraumatic and TM's normal bilaterally HEAD & SCALP: normocephalic and atraumatic TYMPANIC MEMBRANE: TM's normal bilaterally MOUTH: Normal oral and palatal mucosa present THROAT: posterior oropharynx normal Eye: COMMON NORMALS: Equal, round and reactive pupils present and EOMs intact bilaterally PUPIL: Yes Equal, round and reactive pupils present Neck/C-Spine: COMMON NORMALS: full ROM and supple Chest: COMMONS NORMALS: normal inspection of the chest and normal palpation of entire chest wall Resp: COMMON NORMALS: normal respiratory effort, No retractions, No use of accessory muscles and clear to auscultation bilaterally AUSCULTATION: clear to auscultation bilaterally Cardio: COMMON NORMALS: regular rate, regular rhythm and No murmurs present (Cardio) RATE: regular rate RHYTHM: regular rhythm GI: COMMON NORMALS: Normal to inspection, nondistended, normoactive bowel sounds present, Soft to palpation, non-tender and no masses PALPATION: Yes Soft to palpation Extremity: COMMON NORMALS: normal to inspection and full ROM Neuro: COMMON NORMALS: patient oriented x3, moves all extremities and no focal motor deficits Psych: COMMON NORMALS: mental status grossly normal, Normal thought process present and cooperative THOUGHT PROCESS: Normal thought process present Skin: COMMON NORMALS: no rashes or lesions noted and no wounds GENERAL SKIN EXAM: no rashes or lesions noted Course Vital Signs: Vital signs: Vital Signs Temperature 97.9 F 02/05/24 15:20 Pulse Rate 94 02/05/24 15:20 Respiratory Rate 16 02/05/24 15:20 Blood Pressure 131/85 02/05/24 15:20 Pulse Oximetry 96 02/05/24 15:20 MDM - Fever Medical Decision Making Patient presents here with fever cough congestion likely an upper respiratory infection workup here is normal we will place her on a Z-Xavier she is follow-up with PCP and return if worsening she understands agrees to plan. Medical Records I reviewed the patient's medical records. Lab Data I reviewed the patient's lab results. 02/05/24 15:42 02/05/24 15:42 Laboratory Results WBC 12.58 10^3/uL (3.29-11.43) H 02/05/24 15:42 RBC 4.15 10^6/uL (3.85-5.65) 02/05/24 15:42 Hgb 12.60 g/dL (11.27-16.99) 02/05/24 15:42 Hct 37.6 % (36-47) 02/05/24 15:42 MCV 90.6 fl (85-98) 02/05/24 15:42 MCH 30.4 pg (27-33) 02/05/24 15:42 MCHC 33.5 g/dL (30-55) 02/05/24 15:42 RDW 12.8 % (12.1-15.1) 02/05/24 15:42 Plt Count 299 10^3/cmm (157-399) 02/05/24 15:42 MPV 9.1 fL (7.4-10.4) 02/05/24 15:42 Neut % (Auto) 79.0 % 02/05/24 15:42 Lymph % (Auto) 13.3 % 02/05/24 15:42 [place] % (Auto) 6.4 % 02/05/24 15:42 Eos % (Auto) 0.5 % 02/05/24 15:42 Baso % (Auto) 0.3 % 02/05/24 15:42 Neut # (Auto) 9.95 10^3/uL (1.8-7.7) H 02/05/24 15:42 Lymph # (Auto) 1.7 10^3/uL (0.8-4.8) 02/05/24 15:42 [place] # (Auto) 0.8 10^3/uL (0.2-0.9) 02/05/24 15:42 Eos # (Auto) 0.1 10^3/uL (0.0-0.8) 02/05/24 15:42 Baso # (Auto) 0.0 10^3/uL (0.0-0.1) 02/05/24 15:42 Nucleated RBC % (auto) 0 % 02/05/24 15:42 Nucleated RBCs # 0.0 /100WBC 02/05/24 15:42 Sodium 137 mmol/L (136-145) 02/05/24 15:42 Potassium 3.2 mmol/L (3.5-5.1) L 02/05/24 15:42 Chloride 96 mmol/L (98-107) L 02/05/24 15:42 Carbon Dioxide 26 mmol/L (22-29) 02/05/24 15:42 Anion Gap 18.2 (5-19) 02/05/24 15:42 BUN 6 mg/dL (8-23) L 02/05/24 15:42 Creatinine 0.5 mg/dL (0.5-0.9) 02/05/24 15:42 GFR Calculation 124.6 mL/min (90-130) 02/05/24 15:42 Glucose 95 mg/dL (65-115) 02/05/24 15:42 Calculated Osmolality 281 mOsm/kg (285-295) L 02/05/24 15:42 Calcium 9.7 mg/dL (8.5-10.5) 02/05/24 15:42 Total Bilirubin 0.5 mg/dL (0.15-1.2) 02/05/24 15:42 AST 22 U/L (0-32) 02/05/24 15:42 ALT 24 U/L (0-33) 02/05/24 15:42 Alkaline Phosphatase 145 U/L (35-105) H 02/05/24 15:42 NT-Pro-B Natriuret Pep 131 pg/mL (0-125) H 02/05/24 15:42 Total Protein 8.2 g/dL (6.6-8.7) 02/05/24 15:42 Albumin 4.4 g/dL (3.5-5.2) 02/05/24 15:42 Globulin 3.8 g/dL (1.3-4.6) 02/05/24 15:42 Urine Color Yellow (Yellow) 02/05/24 15:42 Urine Appearance Clear (CLEAR) 02/05/24 15:42 Urine pH 5 (5-7) 02/05/24 15:42 Ur Specific [place] 1.005 (1.005-1.030) 02/05/24 15:42 Urine Protein Trace (Negative) 02/05/24 15:42 Urine Glucose (UA) Norm (Normal) 02/05/24 15:42 Urine Ketones 1+ (Negative) H 02/05/24 15:42 Urine Blood 2+ (Negative) H 02/05/24 15:42 Urine Nitrate Negative (Negative) 02/05/24 15:42 Urine Bilirubin Neg (Negative) 02/05/24 15:42 Urine Urobilinogen Norm mg/dL (Negative) 02/05/24 15:42 Ur Leukocyte Esterase Negative (Negative) 02/05/24 15:42 Urine RBC 0-4 /hpf (0-2) H 02/05/24 15:42 Urine WBC 0-4 /hpf (0-5) H 02/05/24 15:42 Ur Squamous Epith Cells 0-4 /hpf (0-5) H 02/05/24 15:42 Ur Transition Epith Cell Rare /hpf 02/05/24 15:42 Amorphous Sediment Not Reportable 02/05/24 15:42 Urine Bacteria None /hpf (NONE) 02/05/24 15:42 Urine Mucus Trace /hpf 02/05/24 15:42 Influenza Type A Ag negative (Negative) 02/05/24 15:42 Influenza Type B Ag negative (Negative) 02/05/24 15:42 SARS-CoV-2 Ag (Rapid) Negative (Negative) 02/05/24 15:42 All radiology interpretation(s) finalized by discharge EKG Data EKG 1: I personally reviewed and interpreted this EKG as follows: EKG interpretation date: 02/05/24 EKG interpretation time: 15:47 Interpretation: nsr hr [address] or t wave abnormalities qrs 105 qtc 414 Discharge Plan Discharge Patient Disposition: Home Clinical Impression: Upper respiratory infection Condition: Stable Prescriptions: New Zithromax Z-Xavier 250 mg tablet See Rx Instructions PO .COMPLEX Qty: 6 0RF Rx Instructions: take 500 mg today (day 1), then 250 mg for 4 days (days 2-5) No Action semaglutide 1 mg/dose (4 mg/3 mL) pen injector 0.5 mg SUBCUT .q7 days Qty: 3 2RF Hold Instructions: Doctor's Order Rx Instructions: on saturday albuterol sulfate 90 mcg/actuation HFA aerosol inhaler 1 inh inhalation Q6H PRN (Reason: shortness of breath or wheezing) Qty: 8.5 0RF Motrin IB 200 mg Capsule 800 mg PO Q6H PRN (Reason: Pain) acetaminophen 500 mg Tablet 1,000 mg PO Q6H PRN (Reason: Pain) pantoprazole 40 mg tablet,delayed release (DR/EC) 40 mg PO DAILY Discharge Orders: Discharge ED (Routine); Ordered 02/05/24 Ordered By: Ele Santiago Referrals: Ecru,Casey W, DO [Primary Care Provider] - 4-7 days Discharge Diet: Advance as tolerated Discharge Activity: Resume usual activity Patient Instructions: Upper Respiratory Infection (ED) Coding Level of Care Code ED [employer] Operator Helper for Isai Causey
[2024-02-05 16:19] LABS: Alanine Aminotransferase 24 U/L (0-33); Albumin Level 4.4 g/dL (3.5-5.2); Alkaline Phosphatase 145 U/L (35-105); Anion Gap 18.2 (5-19); Aspartate Amino Transferase 22 U/L (0-32); Blood Urea Nitrogen 6 mg/dL (8-23); Calcium 9.7 mg/dL (8.5-10.5); Carbon Dioxide 26 mmol/L (22-29); Chloride 96 mmol/L (98-107); Creatinine Clr Calc Pharmacy 123.0722; Globulin 3.8 g/dL (1.3-4.6); Glomerular Filtration Rate 124.6 mL/min (90-130); Glucose 95 mg/dL (65-115); NT Pro B Type Natriuretic Pept 131 pg/mL (0-125); Osmolality Calculated 281 mOsm/kg (285-295); Potassium 3.2 mmol/L (3.5-5.1); Sodium 137 mmol/L (136-145); Total Bilirubin 0.5 mg/dL (0.15-1.2); Total Protein 8.2 g/dL (6.6-8.7)
[2024-02-05 16:29] LABS: SARS Covid-2 Antigen Negative (Negative)
== END 2024-02-05 17:04 | disposition home or self-care (01) ==
PROVIDERS: Emergency Provider Emergency Medicine; PCP Family Medicine
DX: J06.9 Acute upper respiratory infection, unspecified (principal); Z11.52 Encounter for screening for COVID-19; Z86.19 Personal history of other infectious and parasitic diseases
CPT/HCPCS: 36415; 71045; 80053; 81001; 83880; 85025; 87426; 87804; 93005; 99285

== ENCOUNTER 2024-02-08 12:03 | Emergency (ER) | payer BC, MEDICAID, SELFPAY ==
[2024-02-08 12:12] VITALS: BP 130/86; PULSE 95; RESP 16; TEMP 36.8; O2SAT 98; BMI 27.6
--- NOTE | 2024-02-08 13:17 | XRR_ITS ---
PROCEDURE INFORMATION: Exam: XR Chest Exam date and time: 02/08/2024 1:21 PM Age: 63 years old Clinical indication: Patient HX: Weakness; Low temp TECHNIQUE: Imaging protocol: Radiologic exam of the chest. Views: 1 view. COMPARISON: CR XR chest 1V portable [id number] 02/05/2024 3:46 PM FINDINGS: Lungs: There is a minimal infiltrate or atelectasis at the lateral left lung base. Pleural spaces: Unremarkable. No pleural effusion. No pneumothorax. Heart/Mediastinum: Unremarkable. No cardiomegaly. Bones/joints: Unremarkable. XR/XR chest 1V portable [id number] IMPRESSION: Minimal opacity at the lateral left lung base.
--- NOTE | 2024-02-08 13:18 | ED_ITS ---
Documented by User: OFE Cordova 02/08/24 17:07 HPI - General Adult 2 General: Chief complaint: General Medical Stated complaint: low temp, weakness, dizzy Time Seen by Provider: 02/08/24 12:57 Source: patient Mode of arrival: ambulatory Limitations: no limitations History of Present Illness: Patient is a 63-year-old female presents to ED today with a complaint that she just does not feel good . Patient states this is her third visit now for her symptoms. Patient states her son and significant other were sick a week or so ago and she ended up catching what they had. She states she had some nasal congestion, runny nose, cough. She was seen at the walk-in clinic and had a normal chest x-ray performed. Patient was then seen again here in our emergency department for continued symptoms. She was placed on a Z-Xavier. Patient felt like she was initially getting better but woke up this morning feeling ill again. Patient cannot tell me any specific symptoms. She states her cough and congestion has pretty much well resolved. She complains of intermittent chronic neck pains with paresthesias to her hands and feet. This is a longstanding complaint and has been seen for this many times. Patient states this morning she felt like her hands were cold and she had electric current running through my body which is what prompted her concern. She feels like she might be septic. She states she took her temp this morning as well and it read 95.6. She reports fevers of 99s over the past week. She also had 2 episodes of diarrhea. Patient states she used to be on Ozempic but got off of this medication for about a month or so. She did restart it last week. She arrives with completely normal vitals. She is anxious during history taking, often crying in fear of her condition. Reports history of anxiety and depression that she does not treat with medications. Onset (ago): day(s) Relieving factors: none Exacerbating factors: none Associated symptoms: Deny chest pain, confusion, dyspnea, headache(s), malaise, nausea, rash, palpitations, syncope or vomiting Treatments prior to arrival: other (has been taking tylenol) Review of Systems 2 Const: Reports: fever(s) (reports it has ran as high as 99s all week) and change in appetite; Denies: fatigue or malaise Eyes: Denies: change in vision, blurry vision, photophobia, floaters or seeing flashes ENMT: Denies: throat pain, odynophagia, nasal discharge or nasal congestion Card: Denies: chest pain, palpitations, swelling of feet/ankles, lightheadedness, syncope or pre-syncope Resp: Denies: dyspnea, productive cough, wheezing, pain on inspiration, hemoptysis or chest congestion GI: Reports: diarrhea (x 2 today); Denies: abdominal pain, nausea, vomiting, GI cramping, hematochezia or melena : Denies: flank pain, difficulty voiding, dysuria, urinary frequency, urinary urgency or urinary hesitancy Musc: Reports: neck pain (intermittent-chronic) and other (hand/feet paresthesias-chronic/intermittent); Denies: back pain, extremity pain, extremity swelling or joint pain Skin/Breast: Denies: rash Neuro: Denies: headache(s), weakness in extremities, lack of coordination, difficulty walking, frequent falls, dizziness, vertigo, confusion, behavioral changes, Slurred speech present, difficulty communicating thoughts or seizure- like activity PFSH ED 2 PFSH: Medical History Major depression Hepatitis C Treated with Peg/riba in 1999. Failed. Surgical History H/O left knee surgery S/P adenoidectomy H/O tubal ligation History of cholecystectomy Family History Father Stroke Father CAD (coronary artery disease) Mother AD (Alzheimer's disease) Social History Smoking and tobacco/nicotine status: never used tobacco/nicotine Second hand smoke exposure: No Alcohol intake: former Substance/Drug Use: former Physical Exam 2 Const: COMMON NORMALS: average body habitus, patient oriented x3, no limitations, healthy appearing, alert and well nourished GENERAL APPEARANCE: cooperative and anxious ORIENTATION/CONSCIOUSNESS: Yes awake, Yes oriented to person, Yes oriented to place and Yes oriented to time HENMT: COMMON NORMALS: normocephalic and atraumatic HEAD & SCALP: normal to inspection, normocephalic and atraumatic FACE & SINUS: normal facial exam Eye: GENERAL EYE: appearance normal, both eyes and all related structures and normal light reflex DIRECT OPHTHALMOSCOPY: Yes normal light reflex Neck/C-Spine: COMMON NORMALS: full ROM, no lymphadenopathy and no meningeal signs GENERAL: Yes normal visual inspection CERVICAL SPINE: Yes cervical ROM normal Resp: COMMON NORMALS: normal respiratory effort and clear to auscultation bilaterally AUSCULTATION: clear to auscultation bilaterally Cardio: COMMON NORMALS: regular rate and regular rhythm RATE: regular rate RHYTHM: regular rhythm GI: COMMON NORMALS: Normal to inspection, nondistended, normoactive bowel sounds present, Soft to palpation, non-tender, No hepatosplenomegaly present and no masses PALPATION: Yes Soft to palpation and Yes No hepatosplenomegaly present : COMMON NORMALS: Yes no CVA tenderness BLADDER/KIDNEY EXAM: Yes no CVA tenderness Back/Pelvis: COMMON NORMALS: no CVA tenderness and thoracic and lumbar spine normal to inspection Extremity: COMMON NORMALS: normal to inspection GENERAL: Yes normal exam except as noted Neuro: ALBINA COMA SCALE: document GCS findings Albina coma scale eye opening: Spontaneous Albina coma scale verbal response: Orientated Albina coma scale motor response: Obey commands Albina coma scale total score: 15 COMMON NORMALS: patient oriented x3, moves all extremities, no focal motor deficits and no sensory deficits noted SENSORIUM/ORIENTATION: Yes alert, Yes oriented to person, Yes oriented to place and Yes oriented to time MENINGEAL SIGNS: Yes no meningeal signs Skin: COMMON NORMALS: no rashes or lesions noted GENERAL SKIN EXAM: no rashes or lesions noted Course 2 Reevaluation(s): Reevaluation #1: IV infiltrated. She was incredibly difficult to get an initial line on and had multiple attempts. She got about half of the 20meq IV ordered dose as well as 40 meq orally. She is asking if it is necessary to re-establish IV for remainder of IV dose. I think it is reasonable to recheck a potassium and see where she is at and then make a decision from there. ES Vital Signs: Vital signs: Vital Signs Temperature 98.3 F 02/08/24 12:12 Pulse Rate 88 02/08/24 17:30 Respiratory Rate 16 02/08/24 17:30 Blood Pressure 126/82 02/08/24 13:20 Pulse Oximetry 91 02/08/24 17:30 Oxygen Delivery Me thod Room Air 02/08/24 17:30 MDM - General Adult Medical Records I reviewed the patient's medical records. Lab Data I reviewed the patient's lab results. 02/08/24 13:56 02/08/24 17:25 Radiology Impressions Chest X-Ray 02/08/24 13:17 IMPRESSION: Minimal opacity at the lateral left lung base. Laboratory Results WBC 9.87 10^3/uL (3.29-11.43) 02/08/24 13:56 RBC 4.31 10^6/uL (3.85-5.65) 02/08/24 13:56 Hgb 13.20 g/dL (11.27-16.99) 02/08/24 13:56 Hct 39.5 % (36-47) 02/08/24 13:56 MCV 91.6 fl (85-98) 02/08/24 13:56 MCH 30.6 pg (27-33) 02/08/24 13:56 MCHC 33.4 g/dL (30-55) 02/08/24 13:56 RDW 13.0 % (12.1-15.1) 02/08/24 13:56 Plt Count 401 10^3/cmm (157-399) H 02/08/24 13:56 MPV 9.0 fL (7.4-10.4) 02/08/24 13:56 Neut % (Auto) 69.5 % 02/08/24 13:56 Lymph % (Auto) 21.7 % 02/08/24 13:56 [place] % (Auto) 6.6 % 02/08/24 13:56 Eos % (Auto) 1.0 % 02/08/24 13:56 Baso % (Auto) 0.4 % 02/08/24 13:56 Neut # (Auto) 6.86 10^3/uL (1.8-7.7) 02/08/24 13:56 Lymph # (Auto) 2.1 10^3/uL (0.8-4.8) 02/08/24 13:56 [place] # (Auto) 0.7 10^3/uL (0.2-0.9) 02/08/24 13:56 Eos # (Auto) 0.1 10^3/uL (0.0-0.8) 02/08/24 13:56 Baso # (Auto) 0.0 10^3/uL (0.0-0.1) 02/08/24 13:56 Nucleated RBC % (auto) 0 % 02/08/24 13:56 Nucleated RBCs # 0.0 /100WBC 02/08/24 13:56 Sodium 138 mmol/L (136-145) 02/08/24 13:56 Potassium 3.1 mmol/L (3.5-5.1) L 02/08/24 17:25 Chloride 93 mmol/L (98-107) L 02/08/24 13:56 Carbon Dioxide 29 mmol/L (22-29) 02/08/24 13:56 Anion Gap 18.7 (5-19) 02/08/24 13:56 BUN 7 mg/dL (8-23) L 02/08/24 13:56 Creatinine 0.5 mg/dL (0.5-0.9) 02/08/24 13:56 GFR Calculation 124.6 mL/min (90-130) 02/08/24 13:56 Glucose 97 mg/dL (65-115) 02/08/24 13:56 Calculated Osmolality 284 mOsm/kg (285-295) L 02/08/24 13:56 Calcium 9.7 mg/dL (8.5-10.5) 02/08/24 13:56 Magnesium 2.6 mg/dL (1.7-2.3) H 02/08/24 13:56 Total Bilirubin 0.3 mg/dL (0.15-1.2) 02/08/24 13:56 AST 17 U/L (0-32) 02/08/24 13:56 ALT 27 U/L (0-33) 02/08/24 13:56 Alkaline Phosphatase 161 U/L (35-105) H 02/08/24 13:56 Total Protein 8.6 g/dL (6.6-8.7) 02/08/24 13:56 Albumin 4.1 g/dL (3.5-5.2) 02/08/24 13:56 Globulin 4.5 g/dL (1.3-4.6) 02/08/24 13:56 Urine Color Straw (Yellow) 02/08/24 13:46 Urine Appearance Clear (CLEAR) 02/08/24 13:46 Urine pH 6 (5-7) 02/08/24 13:46 Ur Specific [place] 1.010 (1.005-1.030) 02/08/24 13:46 Urine Protein Neg (Negative) 02/08/24 13:46 Urine Glucose (UA) Norm (Normal) 02/08/24 13:46 Urine Ketones Negative (Negative) 02/08/24 13:46 Urine Blood 2+ (Negative) H 02/08/24 13:46 Urine Nitrate Negative (Negative) 02/08/24 13:46 Urine Bilirubin Neg (Negative) 02/08/24 13:46 Urine Urobilinogen Norm mg/dL (Negative) 02/08/24 13:46 Ur Leukocyte Esterase Negative (Negative) 02/08/24 13:46 Urine RBC 0-4 /hpf (0-2) H 02/08/24 13:46 Urine WBC None /hpf (0-5) 02/08/24 13:46 Ur Squamous Epith Cells 0-4 /hpf (0-5) H 02/08/24 13:46 Amorphous Sediment Not Reportable 02/08/24 13:46 Urine Bacteria Trace /hpf (NONE) 02/08/24 13:46 All radiology interpretation(s) finalized by discharge EKG Data EKG 1: EKG interpretation date: 02/08/24 EKG interpretation time: 14:44 Prior EKG tracings: available for review (no acute changes from previous) Interpretation: Sinus rhythm Rate 80 Normal IA interval No acute changes when compared to previous EKG on file Computer generated interpretation: Chest X-Ray 02/08/24 13:17 IMPRESSION: Minimal opacity at the lateral left lung base. Discharge Plan Discharge Patient Disposition: Home Clinical Impression: Acute hypokalemia Pneumonia Qualifiers: Pneumonia type: due to unspecified organism Laterality: left Lung location: l ower lobe of lung Qualified Code(s): J18.9 - Pneumonia, unspecified organism Condition: Stable Prescriptions: New doxycycline hyclate 100 mg tablet 100 mg PO BID 10 Days Qty: 20 0RF potassium chloride 10 mEq capsule, extended release 10 meq PO BID Qty: 10 0RF No Action semaglutide 1 mg/dose (4 mg/3 mL) pen injector 0.5 mg SUBCUT .q7 days Qty: 3 2RF Hold Instructions: Doctor's Order Rx Instructions: on saturday albuterol sulfate 90 mcg/actuation HFA aerosol inhaler 1 inh inhalation Q6H PRN (Reason: shortness of breath or wheezing) Qty: 8.5 0RF ibuprofen [Motrin IB] 200 mg Capsule 800 mg PO Q6H PRN (Reason: Pain) acetaminophen 500 mg Tablet 1,000 mg PO Q6H PRN (Reason: Pain) pantoprazole 40 mg tablet,delayed release (DR/EC) 40 mg PO DAILY azithromycin [Zithromax Z-Xavier] 250 mg tablet See Rx Instructions PO .COMPLEX Qty: 6 0RF Rx Instructions: take 500 mg today (day 1), then 250 mg for 4 days (days 2-5) Discharge Orders: Discharge ED (Routine); Ordered 02/08/24 Ordered By: Charlie Geiger Referrals: Casey Maldonado DO [Primary Care Provider] - Discharge Diet: Usual diet Discharge Activity: Increase activity as tolerated Patient Instructions: Pneumonia (ED) Activity Restrictions/Additional Instructions: Drink plenty of fluids. Take antibiotic as directed. Continue azithromycin for the next 2 days then continue doxycycline as directed. Follow-up with primary care in 1 week for recheck. Return to ED for worsening symptoms such as increasing shortness of breath, severe chest pain, or new concerns. Sign Out Sign Out Data: Patient Sign Out occurred on 02/08/24 at 17:13. Patient's care was discussed, and care was transferred from OFE Cordova to THI Holman. Coding Level of Care Code ED Education Department Chair for Chg Fwd Documented by User: THI Holman 02/08/24 18:06 HPI - General Adult 2 General: Chief complaint: General Medical Stated complaint: low temp, weakness, dizzy Time Seen by Provider: 02/08/24 12:57 PFSH ED 2 PFSH: Medical History Major depression Hepatitis C Treated with Peg/riba in 1999. Failed. Surgical History H/O left knee surgery S/P adenoidectomy H/O tubal ligation History of cholecystectomy Family History Father Stroke Father CAD (coronary artery disease) Mother AD (Alzheimer's disease) Social History Smoking and tobacco/nicotine status: never used tobacco/nicotine Second hand smoke exposure: No Alcohol intake: former Substance/Drug Use: former Physical Exam 2 Neuro: ALBINA COMA SCALE: document GCS findings Albina coma scale total score: 15 Course 2 Vital Signs: Vital signs: Vital Signs Temperature 98.3 F 02/08/24 12:12 Pulse Rate 88 02/08/24 17:30 Respiratory Rate 16 02/08/24 17:30 Blood Pressure 126/82 02/08/24 13:20 Pulse Oximetry 91 02/08/24 17:30 Oxygen Delivery Me thod Room Air 02/08/24 17:30 [facility] - General Adult Medical Decision Making 695, received this patient from Odilia Valenzuela PA-C. We were awaiting a repeat potassium after administration of oral potassium and IV potassium in the ER. Patient had a result of 2.7. Chest x-ray noted a infiltrate in the left lung base. Believe patient probably has some pneumonia she was started on azithromycin 3 days ago and has 2 more days of antibiotic. We will switch azithromycin to doxycycline. Patient be continued on some potassium 10 mEq twice a day for the next 5 days. Patient had been taken some laxatives due to constipation and I believe this is what caused her to become hypokalemic. Courage fluids follow-up with primary care in 1 week return to ED for worsening symptoms. Patient reported understanding. Lab Data 02/08/24 13:56 02/08/24 17:25 Radiology Impressions Chest X-Ray 02/08/24 13:17 IMPRESSION: Minimal opacity at the lateral left lung base. Laboratory Results WBC 9.87 10^3/uL (3.29-11.43) 02/08/24 13:56 RBC 4.31 10^6/uL (3.85-5.65) 02/08/24 13:56 Hgb 13.20 g/dL (11.27-16.99) 02/08/24 13:56 Hct 39.5 % (36-47) 02/08/24 13:56 MCV 91.6 fl (85-98) 02/08/24 13:56 MCH 30.6 pg (27-33) 02/08/24 13:56 MCHC 33.4 g/dL (30-55) 02/08/24 13:56 RDW 13.0 % (12.1-15.1) 02/08/24 13:56 Plt Count 401 10^3/cmm (157-399) H 02/08/24 13:56 MPV 9.0 fL (7.4-10.4) 02/08/24 13:56 Neut % (Auto) 69.5 % 02/08/24 13:56 Lymph % (Auto) 21.7 % 02/08/24 13:56 [place] % (Auto) 6.6 % 02/08/24 13:56 Eos % (Auto) 1.0 % 02/08/24 13:56 Baso % (Auto) 0.4 % 02/08/24 13:56 Neut # (Auto) 6.86 10^3/uL (1.8-7.7) 02/08/24 13:56 Lymph # (Auto) 2.1 10^3/uL (0.8-4.8) 02/08/24 13:56 [place] # (Auto) 0.7 10^3/uL (0.2-0.9) 02/08/24 13:56 Eos # (Auto) 0.1 10^3/uL (0.0-0.8) 02/08/24 13:56 Baso # (Auto) 0.0 10^3/uL (0.0-0.1) 02/08/24 13:56 Nucleated RBC % (auto) 0 % 02/08/24 13:56 Nucleated RBCs # 0.0 /100WBC 02/08/24 13:56 Sodium 138 mmol/L (136-145) 02/08/24 13:56 Potassium 3.1 mmol/L (3.5-5.1) L 02/08/24 17:25 Chloride 93 mmol/L (98-107) L 02/08/24 13:56 Carbon Dioxide 29 mmol/L (22-29) 02/08/24 13:56 Anion Gap 18.7 (5-19) 02/08/24 13:56 BUN 7 mg/dL (8-23) L 02/08/24 13:56 Creatinine 0.5 mg/dL (0.5-0.9) 02/08/24 13:56 GFR Calculation 124.6 mL/min (90-130) 02/08/24 13:56 Glucose 97 mg/dL (65-115) 02/08/24 13:56 Calculated Osmolality 284 mOsm/kg (285-295) L 02/08/24 13:56 Calcium 9.7 mg/dL (8.5-10.5) 02/08/24 13:56 Magnesium 2.6 mg/dL (1.7-2.3) H 02/08/24 13:56 Total Bilirubin 0.3 mg/dL (0.15-1.2) 02/08/24 13:56 AST 17 U/L (0-32) 02/08/24 13:56 ALT 27 U/L (0-33) 02/08/24 13:56 Alkaline Phosphatase 161 U/L (35-105) H 02/08/24 13:56 Total Protein 8.6 g/dL (6.6-8.7) 02/08/24 13:56 Albumin 4.1 g/dL (3.5-5.2) 02/08/24 13:56 Globulin 4.5 g/dL (1.3-4.6) 02/08/24 13:56 Urine Color Straw (Yellow) 02/08/24 13:46 Urine Appearance Clear (CLEAR) 02/08/24 13:46 Urine pH 6 (5-7) 02/08/24 13:46 Ur Specific [place] 1.010 (1.005-1.030) 02/08/24 13:46 Urine Protein Neg (Negative) 02/08/24 13:46 Urine Glucose (UA) Norm (Normal) 02/08/24 13:46 Urine Ketones Negative (Negative) 02/08/24 13:46 Urine Blood 2+ (Negative) H 02/08/24 13:46 Urine Nitrate Negative (Negative) 02/08/24 13:46 Urine Bilirubin Neg (Negative) 02/08/24 13:46 Urine Urobilinogen Norm mg/dL (Negative) 02/08/24 13:46 Ur Leukocyte Esterase Negative (Negative) 02/08/24 13:46 Urine RBC 0-4 /hpf (0-2) H 02/08/24 13:46 Urine WBC None /hpf (0-5) 02/08/24 13:46 Ur Squamous Epith Cells 0-4 /hpf (0-5) H 02/08/24 13:46 Amorphous Sediment Not Reportable 02/08/24 13:46 Urine Bacteria Trace /hpf (NONE) 02/08/24 13:46 EKG Data EKG 1: Computer generated interpretation: Chest X-Ray 02/08/24 13:17 IMPRESSION: Minimal opacity at the lateral left lung base. Discharge Plan Discharge Patient Disposition: Home Clinical Impression: Acute hypokalemia Pneumonia Qualifiers: Pneumonia type: due to unspecified organism Laterality: left Lung location: l ower lobe of lung Qualified Code(s): J18.9 - Pneumonia, unspecified organism Condition: Stable Prescriptions: New doxycycline hyclate 100 mg tablet 100 mg PO BID 10 Days Qty: 20 0RF potassium chloride 10 mEq capsule, extended release 10 meq PO BID Qty: 10 0RF No Action semaglutide 1 mg/dose (4 mg/3 mL) pen injector 0.5 mg SUBCUT .q7 days Qty: 3 2RF Hold Instructions: Doctor's Order Rx Instructions: on saturday albuterol sulfate 90 mcg/actuation HFA aerosol inhaler 1 inh inhalation Q6H PRN (Reason: shortness of breath or wheezing) Qty: 8.5 0RF ibuprofen [Motrin IB] 200 mg Capsule 800 mg PO Q6H PRN (Reason: Pain) acetaminophen 500 mg Tablet 1,000 mg PO Q6H PRN (Reason: Pain) pantoprazole 40 mg tablet,delayed release (DR/EC) 40 mg PO DAILY azithromycin [Zithromax Z-Xavier] 250 mg tablet See Rx Instructions PO .COMPLEX Qty: 6 0RF Rx Instructions: take 500 mg today (day 1), then 250 mg for 4 days (days 2-5) Discharge Orders: Discharge ED (Routine); Ordered 02/08/24 Ordered By: Charlie Geiger Referrals: Casey Maldonado DO [Primary Care Provider] - Discharge Diet: Usual diet Discharge Activity: Increase activity as tolerated Patient Instructions: Pneumonia (ED) Activity Restrictions/Additional Instructions: Drink plenty of fluids. Take antibiotic as directed. Continue azithromycin for the next 2 days then continue doxycycline as directed. Follow-up with primary care in 1 week for recheck. Return to ED for worsening symptoms such as increasing shortness of breath, severe chest pain, or new concerns. Sign Out Sign Out Data: Patient Sign Out occurred on 02/08/24 at 17:13. Patient's care was discussed, and care was transferred from OFE Cordova to THI Holman. Coding Level of Care Code ED Education Department Chair for Isai Causey
[2024-02-08 13:20] VITALS: BP 126/82; PULSE 84; RESP 16; O2SAT 95
[2024-02-08 14:08] LABS: Basophils % 0.4 %; Eosinophils # 0.1 10^3/uL (0.0-0.8); Hematocrit 39.5 % (36-47); Lymphocytes # 2.1 10^3/uL (0.8-4.8); Lymphocytes % 21.7 %; Mean Corpuscular HGB Conc 33.4 g/dL (30-55); Mean Corpuscular Hemoglobin 30.6 pg (27-33); Mean Corpuscular Volume 91.6 fl (85-98); Monocytes # 0.7 10^3/uL (0.2-0.9); Monocytes % 6.6 %; Neutrophils # 6.86 10^3/uL (1.8-7.7); Neutrophils % 69.5 %; Nucleated Red Blood Cells % 0 %; Platelet Count 401 10^3/cmm (157-399); Red Blood Count 4.31 10^6/uL (3.85-5.65); White Blood Count 9.87 10^3/uL (3.29-11.43)
[2024-02-08 14:21] LABS: Add Urine Microscopic? YES; Bilirubin Urine Neg (Negative); Blood Urine 2+ (Negative); Glucose Urine UA Norm (Normal); Ketones Urine Negative (Negative); Leukocyte Esterase Urine Negative (Negative); Nitrate Urine Negative (Negative); Protein Urine Neg (Negative); RBC Urine 0-4 /hpf (0-2); Urine Appearance Clear (CLEAR); Urine Color Straw (Yellow); Urobilinogen Urine Norm (Negative); pH Urine 6 (5-7)
[2024-02-08 14:22] LABS: Add Urine Culture? No; Bacteria Urine TRACE /hpf; Squamous Epithelial Cell Urine 0-4 /hpf (0-5)
[2024-02-08 14:23] LABS: Alanine Aminotransferase 27 U/L (0-33); Albumin Level 4.1 g/dL (3.5-5.2); Alkaline Phosphatase 161 U/L (35-105); Anion Gap 18.7 (5-19); Aspartate Amino Transferase 17 U/L (0-32); Blood Urea Nitrogen 7 mg/dL (8-23); Calcium 9.7 mg/dL (8.5-10.5); Carbon Dioxide 29 mmol/L (22-29); Chloride 93 mmol/L (98-107); Creatinine Clr Calc Pharmacy 121.0927; Globulin 4.5 g/dL (1.3-4.6); Glomerular Filtration Rate 124.6 mL/min (90-130); Glucose 97 mg/dL (65-115); Osmolality Calculated 284 mOsm/kg (285-295); Sodium 138 mmol/L (136-145); Total Bilirubin 0.3 mg/dL (0.15-1.2); Total Protein 8.6 g/dL (6.6-8.7)
[2024-02-08 14:25] LABS: Potassium 2.7 mmol/L (3.5-5.1)
[2024-02-08] MEDS: potassium chloride ER 20 mEq Tablet 40 MEQ PO (14:43)
--- NOTE | 2024-02-08 14:44 | ECG_ITS ---
[facility] Test Date: 2024-02-08 Pat Name: Mary Grace Segura Department: Room: Gender: Female Advertising Clerk: : 1960 Requested By: Odilia Valenzuela Order Number: [id number] Jaclyn MD: Bhavik Ernst M.D. Measurements Intervals Center Rate: 80 P: 57 SD: 176 QRS: -20 QRSD: 108 T: 7 QT: 403 QTc: 466 Interpretive Statements SINUS RHYTHM LOW QRS VOLTAGE IN PRECORDIAL LEADS [QRS DEFLECTION < 1.0 mV IN CHEST LEADS] INCOMPLETE RIGHT BUNDLE BRANCH BLOCK [90+ ms QRS DURATION, TERMINAL R IN V1/V2, 40+ ms S IN I/aVL/V4/V5/V6] POSSIBLE ANTERIOR MYOCARDIAL INFARCTION , OF INDETERMINATE AGE [30 ms Q WAVE IN V3/V4, OR R < 0.2 mV IN V4] Compared to ECG 02/05/2024 15:47:40 Low QRS voltage now present Myocardial infarct finding now present Electronically Signed On 02-09-2024 11:19:49 CDT by Bhavik Ernst M.D. [id number]
[2024-02-08 15:06] LABS: Magnesium 2.6 mg/dL (1.7-2.3)
[2024-02-08] MEDS: lidocaine 1% 5 ML in potassium chloride premix 100 ML 52.5 ML IV (15:10)
[2024-02-08 15:19] VITALS: PULSE 81; RESP 17; O2SAT 94
[2024-02-08 15:47] VITALS: PULSE 78; RESP 16; O2SAT 94
[2024-02-08 17:30] VITALS: PULSE 88; RESP 16; O2SAT 91
[2024-02-08 17:49] LABS: Potassium 3.1 mmol/L (3.5-5.1)
[2024-02-08] MEDS: doxycycline 100 mg Tablet PO (18:29)
== END 2024-02-08 18:41 | disposition home or self-care (01) ==
PROVIDERS: Physician Assistant; Emergency Provider Nurse Practitioner Family; PCP Family Medicine
DX: E87.6 Hypokalemia (principal); J18.9 Pneumonia, unspecified organism; Z79.85 Long-term (current) use of injectable non-insulin antidiabetic drugs; Z86.19 Personal history of other infectious and parasitic diseases
CPT/HCPCS: 36415; 71045; 80053; 81001; 83735; 84132; 85025; 93005; 96365; 96366; 99285; J3480

== ENCOUNTER → 2024-02-12 12:01 | Outpatient (BNVA) | payer BC, MEDICAID, SELFPAY | PROVIDERS: PCP Family Medicine; Visit Provider Family Medicine | DX: R31.9 Hematuria, unspecified (principal); E87.6 Hypokalemia | CPT/HCPCS: 80048; 81000 ==

== ENCOUNTER 2024-06-26 14:02 | Outpatient (CLI) | payer BC, MEDICAID, SELFPAY ==
--- NOTE | 2024-06-26 14:30 | USCV_ITS ---
Mary Grace Segura Age: 64 Gender: F : 1960 Exam Date: 06/26/2024 14:22 Ordering Phys: Casey Maldonado DO Technologist: [place] [facility] [place]: BP: 106 / 66 HR: 74 Rhythm: Sinus Technical Quality: Adequate MEASUREMENTS (Male / Female) Normal Values 2D ECHO LVOT Diameter 2.1 cm LV Ejection Fraction MOD 4C 69.3 % LV Ejection Fraction MOD 2C 67.9 % LV Ejection Fraction 2C AL 67.5 % LA Diameter 3.3 cm RA Systolic Volume 4C AL 29.3 ml RA Systolic Volume 4C MOD 27.8 ml LA Sys Volume AL 34.6 cm cubed LA Sys Volume Index AL 17.6 cm cubed/m squared Aorta at Sinotubular Diameter 3.2 cm IVC Diameter 1.9 cm M-MODE LA Ao Ratio MM 1.3 AV Cusp Separation MM 1.8 cm DOPPLER AV Peak Velocity 138.0 cm/s LVOT Peak Velocity 124.0 cm/s AV Area Cont Eq vti 3.8 cm squared AV Area Cont Eq pk 3.2 cm squared MV Peak Velocity 93.0 cm/s MV Area PHT 4.2 cm squared Mitral E to A Ratio 0.8 TR Peak Velocity 159.0 cm/s TR Peak Gradient 10.1 mmHg TV Peak E Velocity 63.0 cm/s Right Atrial Pressure 3.0 mmHg Pulmonary Artery Systolic Pressu 13.1 mmHg PV Peak Velocity 109.0 cm/s FINDINGS Left Ventricle Normal left ventricular size and systolic function, EF 68%.no regional wall motion abnormalities. Grade I/IV diastolic dysfunction (abnormal relaxation filling pattern), normal to mildly elevated filling pressures. Right Ventricle The right ventricle is normal in size and function. Right Atrium The right atrium is normal in size. Left Atrium The left atrium is normal in size. Mitral Valve Mild mitral valve regurgitation. Aortic Valve Thickened aortic valve. [id number] aortic valve regurgitation. Tricuspid Valve Trace tricuspid valve regurgitation. Estimated pulmonary artery peak systolic pressure within normal limits Pulmonic Valve Pulmonic valve not well visualized. Pericardium Normal pericardium without effusion. Aorta The ascending aorta measured 3.8 cm in diameter IVC The inferior vena cava appears normal. CONCLUSIONS Normal left ventricular size and systolic function, EF 68%.no regional wall motion abnormalities. Grade I/IV diastolic dysfunction (abnormal relaxation filling pattern), normal to mildly elevated filling pressures. Mild mitral valve regurgitation. Thickened aortic valve. Stft-no-wqdtzmqg aortic valve regurgitation. Trace tricuspid valve regurgitation. Estimated pulmonary artery peak systolic pressure within normal limits. Mildly dilated ascending aorta measuring 3.8 cm in diameter There is no pericardial effusion. There are no intracardiac masses. No similar previous studies are available for comparison Dr Cata uDval MD FAC (Electronically Signed) Final Date: 26 June 2024 20:44 S
== END 2024-06-26 14:03 | disposition home or self-care (01) ==
LOC: RAD 14:03
PROVIDERS: PCP Family Medicine; Visit Provider Family Medicine
DX: I08.3 Combined rheumatic disorders of mitral, aortic and tricuspid valves (principal); R01.1 Cardiac murmur, unspecified
CPT/HCPCS: 93306

== ENCOUNTER → 2024-10-22 10:30 | Outpatient (BNVA) | payer BC, MEDICAID, SELFPAY | PROVIDERS: PCP Family Medicine; Visit Provider Family Medicine | DX: Z71.3 Dietary counseling and surveillance (principal); F33.0 Major depressive disorder, recurrent, mild; R53.82 Chronic fatigue, unspecified; E55.9 Vitamin D deficiency, unspecified; E87.6 Hypokalemia | CPT/HCPCS: 80053; 80061; 82306; 84439; 84443; 85025 ==

== ENCOUNTER → 2024-11-11 14:58 | Outpatient (BNVA) | payer BC, MEDICAID, SELFPAY | PROVIDERS: PCP Family Medicine; Visit Provider Emergency Medicine | DX: R11.0 Nausea (principal) | CPT/HCPCS: 81000; 87086 ==

== ENCOUNTER → 2024-12-11 13:08 | Outpatient (BNVA) | payer BC, MEDICAID, SELFPAY | PROVIDERS: PCP Family Medicine; Visit Provider Emergency Medicine | DX: R39.9 Unspecified symptoms and signs involving the genitourinary system (principal); R11.0 Nausea | CPT/HCPCS: 81000 ==

== ENCOUNTER → 2025-01-01 10:00 | Outpatient (BNVA) | payer BC, MEDICAID, SELFPAY | PROVIDERS: PCP Family Medicine; Visit Provider Registered Nurse Neonatal Intensive Care | DX: R39.9 Unspecified symptoms and signs involving the genitourinary system (principal) | CPT/HCPCS: 81000 ==

== ENCOUNTER → 2025-01-27 11:52 | Outpatient (BNVA) | payer BC, MEDICAID, SELFPAY | PROVIDERS: PCP Family Medicine; Visit Provider Nurse Practitioner Women's Health | DX: R30.0 Dysuria (principal); Z12.4 Encounter for screening for malignant neoplasm of cervix | CPT/HCPCS: 84315; 87086; 87624 ==

== ENCOUNTER → 2025-02-08 10:00 | Outpatient (BNVA) | payer BC, MEDICAID, SELFPAY | PROVIDERS: PCP Family Medicine; Visit Provider Family Medicine | DX: R53.82 Chronic fatigue, unspecified (principal); Z71.3 Dietary counseling and surveillance; R79.89 Other specified abnormal findings of blood chemistry | CPT/HCPCS: 80053; 82607; 84439; 84443; 84481 ==

== ENCOUNTER 2025-02-17 10:00 | Outpatient (CLI) | payer BC, MEDICAID, SELFPAY ==
--- NOTE | 2025-02-17 13:00 | MM_ITS ---
WS: [id number] Bilateral screening 3D tomosynthesis digital mammogram, 02/17/2025 10:02 AM Clinical Data: Z12.39 - Encounter for other screening for malignant neop... Comparison: 11/06/2023, 07/18/2017. Findings: No spiculated masses or clustered calcifications are seen. There are no secondary signs of carcinoma. MM/MM scr BI tomosynthesis 19507 Impression: Negative bilateral mammogram unchanged. Recommend annual screening mammograms. BIRADS: 1 - Negative. FOLLOW UP: 1 Year Follow-up DENSITY: There are scattered areas of fibroglandular density. The CAD baggage checker was used
--- NOTE | 2025-02-17 13:30 | XR_ITS ---
WS: [id number] DEXA (DUAL ENERGY X-RAY ABSORPTIOMETRY) Bone mineral density was performed using a [employer] machine. HISTORY: Z13.820 - Encounter for screening for osteoporosis COMPARISON: None available. Lumbar spine BMD (L1-L4): 1.077 g/cm2 T score: -0.9 Z score: 0.4 Total hip BMD: Left: 0.992 g/cm2. T score: -0.1 Z score: 0.9 Right: 0.993 g/cm2. T score: -0.1 Z score: 0.9 10 year probability of a major osteoporotic fracture is 14.5%. XR/XR DEXA axial skeleton* 36500 IMPRESSION: NORMAL BONE MINERAL DENSITY based upon the WHO classification for females.
== END 2025-02-17 10:01 | disposition home or self-care (01) ==
PROVIDERS: PCP Family Medicine; Visit Provider Nurse Practitioner Women's Health
DX: Z12.31 Encounter for screening mammogram for malignant neoplasm of breast (principal); Z13.820 Encounter for screening for osteoporosis; R92.323 Mammographic fibroglandular density, bilateral breasts
CPT/HCPCS: 77063; 77067; 77080

== ENCOUNTER → 2025-06-17 11:34 | Outpatient (BNVA) | payer MEDICARE, OTHER, MEDICAID, SELFPAY | PROVIDERS: PCP Family Medicine; Visit Provider Emergency Medicine | DX: M25.461 Effusion, right knee (principal) | CPT/HCPCS: 73562 ==

== ENCOUNTER → 2025-06-21 13:23 | Outpatient (BNVA) | payer MEDICARE, MEDICAID, SELFPAY | PROVIDERS: PCP Family Medicine; Visit Provider Orthopaedic Surgery | DX: M25.561 Pain in right knee (principal); G89.29 Other chronic pain | CPT/HCPCS: 99204 ==

== ENCOUNTER 2025-07-26 16:07 | Outpatient (CLI) | payer MEDICARE, MEDICAID, SELFPAY ==
[2025-07-26 16:37] LABS: Hematocrit 45.0 % (36-47); Hemoglobin 14.80 g/dL (11.27-16.99); Mean Corpuscular HGB Conc 32.9 g/dL (30-55); Mean Corpuscular Hemoglobin 30.1 pg (27-33); Mean Corpuscular Volume 91.6 fl (85-98); Nucleated Red Blood Cells % 0 %; Platelet Count 280 10^3/cmm (157-399); Red Blood Count 4.91 10^6/uL (3.85-5.65); White Blood Count 8.10 10^3/uL (3.29-11.43)
[2025-07-26 17:52] LABS: Alanine Aminotransferase 8 U/L (0-33); Albumin Level 5.1 g/dL (3.5-5.2); Alkaline Phosphatase 95 U/L (35-105); Anion Gap 18.6 (5-19); Aspartate Amino Transferase 16 U/L (0-32); Blood Urea Nitrogen 15 mg/dL (8-23); Calcium 10.0 mg/dL (8.5-10.5); Carbon Dioxide 24 mmol/L (22-29); Chloride 100 mmol/L (98-107); Globulin 3.5 g/dL (1.3-4.6); Glucose 70 mg/dL (65-115); Osmolality Calculated 287 mOsm/kg (285-295); Potassium 3.6 mmol/L (3.5-5.1); Sodium 139 mmol/L (136-145); Thyroid Stimulating Hormone 1.50 uIU/mL (0.27-4.20); Total Protein 8.6 g/dL (6.6-8.7); Vitamin B12 586 pg/mL (232-1245)
== END 2025-07-26 16:08 | disposition home or self-care (01) ==
LOC: LAB 16:09
PROVIDERS: PCP Family Medicine; Visit Provider Family Medicine
DX: M19.90 Unspecified osteoarthritis, unspecified site (principal); M25.561 Pain in right knee; G89.29 Other chronic pain; M25.50 Pain in unspecified joint; E55.9 Vitamin D deficiency, unspecified; E78.2 Mixed hyperlipidemia; R79.89 Other specified abnormal findings of blood chemistry
CPT/HCPCS: 36415; 80053; 82248; 82306; 82607; 84443; 85025; 85651; 86140

== ENCOUNTER → 2025-10-19 15:11 | Outpatient (BNVA) | payer MEDICARE, MEDICAID, SELFPAY | PROVIDERS: PCP Family Medicine; Visit Provider Family Medicine | DX: R39.9 Unspecified symptoms and signs involving the genitourinary system (principal) | CPT/HCPCS: 81000 ==